=== PATIENT | female | born 1945 | race Caucasian/White ===

== ENCOUNTER 2020-12-04 21:58 | Emergency (ER) | payer MEDICARE, OTHER ==
[2020-12-04] MEDS ORDERED: Zofran 4 MG/2 ML VIAL IV ONE (22:19)
[2020-12-04] MEDS ORDERED: MORPHINE SULFATE 2 MG INJ IV ONE (22:19)
[2020-12-04] MEDS ORDERED: Sodium Chloride 0.9% 500 ML 500 ML IV ONE (22:20)
[2020-12-04] MEDS ORDERED: Zofran 4 MG/2 ML VIAL ONE (22:40)
[2020-12-04] MEDS ORDERED: MORPHINE SULFATE 2 MG INJ ONE (22:40)
[2020-12-04 22:51] LABS: Absolute Neutrophil Ct (ANC) 4.86 (1.4-6.9); BASOPHIL % 0.2 % (0.0-0.4); Basophil (Absolute #) 0.01 (0-0.4); Eosinophil % 3.3 % (0.00-5.0); Eosinophil (Absolute #) 0.19 (0-0.5); Hematocrit 39.6 % (35-47); Hemoglobin 12.9 gm/dl (12.0-16.0); Lymphocyte (Absolute #) 0.29 (1.0-4.6); Lymphocytes % 5.1 % (24.0-44.0); Mean Cell Volume 91.9 fl (78-100); Mean Corpuscular Hemoglobin 29.9 pg (26-32); Mean Corpuscular Hgb Concent. 32.6 g/dl (32-36); Mean Platelet Volume 10.4 fl (7.5-11.0); Monocyte (Absolute #) 0.38 (0.0-1.3); Monocytes % 6.6 % (0.0-12.0); Neutrophil % 84.8 % (36.0-66.0); Platelet Count 207 K/mm3 (150-450); Red Blood Count 4.31 M/mm3 (4.1-5.4); Red Cell Distribution Width 13.1 % (11.5-14.0); White Blood Count 5.7 K/mm3 (4.0-10.5)
--- NOTE | 2020-12-04 22:54 | ERPHSYRPT ---
- History of Present Illness Time Seen by Provider: 12/04/20 22:25 Historian: patient, family Exam Limitations: no limitations Patient Subjective Stated Complaint: pt states "I have had belly pain for a week." Triage Nursing Assessment: pt ambulated into the er; pt is axo x1; c/o abd pain for the past week; pt states 8/10 pain to RLQ; pt denies diarrhea; sister states that pt is vomiting up mucus thick stuff; pt has abd tenderness to RLQ; urine is russel in color; sister states that pt is on antibiotic for UTI; sister states that pt has not been eating or drinking very well lately; vitals wnl Physician History: 75 years old female presented in the ER with chief complaint of lower abdominal pain for almost 1 week with associated nausea/dry heaving and decreased oral intake/appetite. Patient is feeling weak fatigued and tired. Patient sister reports having similar symptoms in the past with UTI and was given antibiotics few days ago and has taken 3 doses so far. She denies any urinary symptoms currently. No fever or chills reported. Patient reports minimal lower abdominal pain currently without any significant aggravating or relieving factors. Timing/Duration: week(s) (1), gradual onset, worse Activities at Onset: rest Quality: dullness Abdominal Pain Onset Location: RLQ, LLQ, periumbilical Pain Radiation: no radiation Severity of Pain-Max: moderate Severity of Pain-Current: mild Modifying Factors: Improves With: nothing Associated Symptoms: loss of appetite, nausea Previous symptoms: no prior history Allergies/Adverse Reactions: Sulfa (Sulfonamide Antibiotics) [Sulfa(Sulfonamide Antibiotics)] Allergy (Verified 09/17/13 14:15) Home Medications: Nitrofurantoin Macro 100 mg [Macrobid 100MG Capsule] 100 mg PO BID 12/04/20 [History] Trazodone HCl 50 mg [Desyrel 50 mg] 25 mg PO HS 12/04/20 [History] Hx Tetanus, Diphtheria Vaccination/Date Given: No Hx Influenza Vaccination/Date Given: No Hx Pneumococcal Vaccination/Date Given: No Travel Risk - International Travel Have you traveled outside of the country in past 3 weeks: No - Coronavirus Screening Are you exhibiting any of the following symptoms?: No Close contact with a COVID-19 positive Pt in past 14-21 Days: No - Vaccine Status Have you recieved a Covid-19 vaccination: Yes 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 - Vaccination Dates Date of 2cond Vaccination (if applicable): 08/03 - Review of Systems Constitutional: Fatigue, Weakness Eyes: No Symptoms Ears, Nose, & Throat: No Symptoms Respiratory: No Symptoms Cardiac: No Symptoms Abdominal/Gastrointestinal: Abdominal Pain, Nausea Genitourinary Symptoms: No Symptoms Musculoskeletal: No Symptoms Skin: No Symptoms Neurological: No Symptoms Endocrine: No Symptoms Hematologic/Lymphatic: No Symptoms Immunological/Allergic: No Symptoms - Past Medical History Pertinent Past Medical History: Yes Neurological History: No Pertinent History ENT History: No Pertinent History Cardiac History: No Pertinent History Respiratory History: No Pertinent History Endocrine Medical History: No Pertinent History Musculoskeletal History: No Pertinent History GI Medical History: Hernia History: No Pertinent History Psycho-Social History: No Pertinent History Female Reproductive Disorders: Breast Cancer Other Medical History: BREAST CANCER OVER 10 YEARS AGO - Past Surgical History Past Surgical History: Yes Neuro Surgical History: No Pertinent History Cardiac: No Pertinent History Respiratory: No Pertinent History Gastrointestinal: Cholecystectomy, Hernia Repair Genitourinary: No Pertinent History Musculoskeletal: Orthopedic Surgery Female Surgical History: Lumpectomy, Mastectomy Other Surgical History: KNEE SURGERY - Social History Smoking Status: Never smoker Exposure to second hand smoke: No Drug Use: none Patient Lives Alone: No - Female History Hx Now: No - Nursing Vital Signs Nursing Vital Signs: Initial Vital Signs Temperature 98.1 F 12/04/20 22:23 Pulse Rate 61 12/04/20 22:23 Respiratory Rate 16 12/04/20 22:23 Blood Pressure 138/91 12/04/20 22:23 O2 Sat by Pulse Oximetry 95 12/04/20 22:23 Pain Scale Pain Intensity 4 - Physical Exam General Appearance: no apparent distress, alert Eye Exam: PERRL/EOMI, eyes nml inspection Ears, Nose, Throat Exam: normal ENT inspection, pharynx normal Neck Exam: normal inspection, supple, full range of motion Respiratory Exam: normal breath sounds, lungs clear Cardiovascular Exam: regular rate/rhythm, normal heart sounds Gastrointestinal/Abdomen Exam: soft, normal bowel sounds, tenderness (Minimal tenderness lower abdomen bilaterally with no guarding or rebound tenderness.) Back Exam: normal inspection, normal range of motion Extremity Exam: normal inspection, normal range of motion Neurologic Exam: alert, oriented x 3, cooperative Skin Exam: normal color SpO2 Interpretation: normal SpO2: 95 O2 Delivery: Room Air Ordered Tests: Active Orders 24 hr Category Date Time Status IV Insertion STAT Care 12/04/20 22:19 Active NPO (ED) STAT Care 12/04/20 22:19 Active ABDOMEN AND PELVIS W/0 CONTRAS [CT] Stat Exams 12/04/20 22:20 Taken CBC W DIFF Stat Lab 12/04/20 22:22 Completed CMP Stat Lab 12/04/20 22:22 Completed CULTURE,URINE Stat Lab 12/04/20 22:22 Received LIPASE Stat Lab 12/04/20 22:22 Completed UA W/RFX UR CULTURE Stat Lab 12/04/20 22:22 Completed Medication Summary Discontinued Medications Generic Name Dose Route Start Last Admin Trade Name Parishq PRN Reason Stop Dose Admin Sodium Chloride 500 mls @ 500 mls/hr 12/04/20 22:20 12/04/20 23:52 Sodium Chloride 0.9% 500 Ml IV 12/04/20 23:19 Infused .Q1H ONE Infusion Ceftriaxone Sodium/Dextrose 2 g in 50 mls @ 100 mls/hr 12/05/20 00:59 12/05/20 01:03 Rocephin 2 Gm-D5w 50ml Bag IV 12/05/20 01:28 100 mls/hr STAT STA 100 mls/hr Administration Ceftriaxone Sodium/Dextrose Confirm 12/05/20 01:01 Rocephin 2 Gm-D5w 50ml Bag Administered 12/05/20 01:02 Dose 2 g in 50 mls @ ud IV .STK-MED ONE Morphine Sulfate 2 mg 12/04/20 22:19 12/04/20 22:41 Morphine Sulfate 2 Mg Inj IV 12/04/20 22:20 2 mg STAT ONE Administration Morphine Sulfate Confirm 12/04/20 22:40 Morphine Sulfate 2 Mg Inj Administered 12/04/20 22:41 Dose 2 mg .ROUTE .STK-MED ONE Ondansetron HCl 4 mg 12/04/20 22:19 12/04/20 22:41 Zofran 4 Mg/2 Ml Vial IV 12/04/20 22:20 4 mg STAT ONE Administration Ondansetron HCl Confirm 12/04/20 22:40 Zofran 4 Mg/2 Ml Vial Administered 12/04/20 22:41 Dose 4 mg .ROUTE .STK-MED ONE Lab/Rad Data: Laboratory Result Diagrams 12/04/20 22:22 12/04/20 22:22 Laboratory Results 12/04/20 12/04/20 12/04/20 Range/Units 22:22 22:22 22:22 WBC 5.7 (4.0-10.5) K/mm3 RBC 4.31 (4.1-5.4) M/mm3 Hgb 12.9 (12.0-16.0) gm/dl Hct 39.6 (35-47) % MCV 91.9 (78-100) fl MCH 29.9 (26-32) pg MCHC 32.6 (32-36) g/dl RDW 13.1 (11.5-14.0) % Plt Count 207 (150-450) K/mm3 MPV 10.4 (7.5-11.0) fl Gran % 84.8 H (36.0-66.0) % Eos # (Auto) 0.19 (0-0.5) Absolute Lymphs (auto) 0.29 L (1.0-4.6) Absolute Monos (auto) 0.38 (0.0-1.3) Lymphocytes % 5.1 L (24.0-44.0) % Monocytes % 6.6 (0.0-12.0) % Eosinophils % 3.3 (0.00-5.0) % Basophils % 0.2 (0.0-0.4) % Absolute Granulocytes 4.86 (1.4-6.9) Basophils # 0.01 (0-0.4) Sodium 135 L (137-145) mmol/L Potassium 3.6 (3.5-5.1) mmol/L Chloride 95 L (98-107) mmol/L Carbon Dioxide 29 (22-30) mmol/L Anion Gap 14.9 (5-15) MEQ/L BUN 18 H (7-17) mg/dL Creatinine 1.21 H (0.52-1.04) mg/dL Estimated GFR 46.2 ML/MIN Glucose 137 H (74-106) mg/dL Calcium 9.7 (8.4-10.2) mg/dL Total Bilirubin 1.30 (0.2-1.3) mg/dL AST 22 (14-36) U/L ALT 10 (0-35) U/L Alkaline Phosphatase 126 (38-126) U/L Serum Total Protein 7.2 (6.3-8.2) g/dL Albumin 4.0 (3.5-5.0) g/dL Lipase 29 (23-300) U/L Urine Color RUSSEL (YELLOW) Urine Appearance SLIGHTLY CLOUDY (CLEAR) Urine pH 5.0 (5-6) Ur Specific Fletcher 1.018 (1.005-1.025) Urine Protein 30 (Negative) Urine Ketones TRACE (NEGATIVE) Urine Blood NEGATIVE (0-5) Jourdan/ul Urine Nitrite NEGATIVE (NEGATIVE) Urine Bilirubin NEGATIVE (NEGATIVE) Urine Urobilinogen 4 (0-1) mg/dL Ur Leukocyte Esterase MODERATE (NEGATIVE) Urine WBC (Auto) 51-100 (0-5) /HPF Urine RBC (Auto) 3-5 (0-2) /HPF U Epithel Cells (Auto) NONE (FEW) /HPF Urine Bacteria (Auto) RARE (NEGATIVE) /HPF Urine Mucus (Auto) SLIGHT (NEGATIVE) /HPF Urine Culture Reflexed YES (NO) Urine Glucose NEGATIVE (NEGATIVE) mg/dL Slides for Path Review YES - Progress Progress: improved Progress Note: 12/05/20 01:33 She is given a fluid bolus along with symptomatic treatment, on reevaluation she is pain-free. Work-up showed normal white count, chemistry profile consistent with mild dehydration. She does have UTI and given a dose of Rocephin in here I. I have obtained CT abdomen pelvis without contrast which showed finding consistent with mild colitis and fluid throughout colon with patient/sister confirms that she has history of chronic diarrhea all the time for quite some time. She does not have any difficulty breathing. With her having UTI and questionable colitis I would continue with Augmentin to go home. Discussed outpatient follow-up with primary care for reevaluation. Discussed signs symptoms of worsening needing return to ER which she seems understanding. Stable for discharge. Counseled pt/family regarding: lab results, diagnosis, need for follow-up, rad results - Departure Departure Disposition: Home Clinical Impression: Acute UTI, Colitis Condition: Stable Critical Care Time: No Referrals: DIVYA CRUZ [Primary Care Provider] - (1-2 days for reevaluation) Instructions: Urinary Tract Infection, Adult (DC), Acute Abdomen (Belly Pain), Adult (DC) Additional Instructions: Take Tylenol as needed for pain. Keep yourself well-hydrated. Follow-up with your primary care physician for reevaluation. Return to ER for worsening abdominal pain, fever chills, if develop confusion/altered level of sensorium. Prescriptions: Amoxicillin/Potassium Clav [Augmentin 875-125 Tablet] 875 mg PO BID 7 Days #14 tablet
[2020-12-04 22:55] LABS: Appearance SLIGHTLY CLOUDY (CLEAR); Bacteria RARE /HPF (NEGATIVE); Bilirubin NEGATIVE (NEGATIVE); Blood NEGATIVE Ery/ul (0-5); Glucose NEGATIVE (NEGATIVE); Ketones TRACE (NEGATIVE); Leukocyte Esterase MODERATE (NEGATIVE); Mucus SLIGHT /HPF (NEGATIVE); Nitrite NEGATIVE (NEGATIVE); Protein,Urine Dip 30 (Negative); Specific Gravity 1.018 (1.005-1.025); Urobilinogen 4 mg/dL (0-1); WBC 51-100 /HPF (0-5)
[2020-12-04 23:03] LABS: ANION GAP 14.9 MEQ/L (5-15); BILIRUBIN,TOTAL 1.3 mg/dL (0.2-1.3); Calcium 9.7 mg/dL (8.4-10.2); Creatinine 1 1.21 mg/dL (0.52-1.04); EST GLOMERULAR FILTRATION RATE 46.2 ML/MIN; Potassium 3.6 mmol/L (3.5-5.1); Total Protein 7.2 g/dL (6.3-8.2)
[2020-12-04 23:56] LABS: Slide Review 1 YES
[2020-12-05] MEDS ORDERED: ROCEPHIN 2 Gm-D5w 50ML BAG** 2 G/50 ML IVPB IV STA (00:59)
[2020-12-05] MEDS ORDERED: ROCEPHIN 2 Gm-D5w 50ML BAG** 2 G/50 ML IVPB IV ONE (01:01)
[2020-12-05 01:10] VITALS: BP 120/74; PULSE 50
[2020-12-05 01:12] VITALS: O2SAT 95
--- NOTE | 2020-12-05 09:15 | XRAY ---
Indication: Lower abdomen pain. UTI. Multiple contiguous images obtained through the abdomen and pelvis without contrast. Comparison: December 26, 2011. Lung bases demonstrates new right lower lobe consolidating airspace disease with small effusion. Stable large hiatal hernia with left lower lobe partial intrathoracic stomach and subsegmental atelectasis. Heart not enlarged. Again partially visualized left breast implant. Noncontrasted stomach and bowel loops appear nonobstructed. Normal appendix. There is now mild fluid distended colon throughout with fluid leveling favoring diarrhea. Again minimal descending/sigmoid diverticulosis without diverticulitis and 13.6 cm splenomegaly. Uterus demonstrates new tiny calcified fibroids, largest 8mm. Interval cholecystectomy. Remaining liver, pancreas, spleen, adrenal glands, kidneys, ureters, bladder, and uterus unremarkable for noncontrast exam. Minimal aortoiliac calcifications without AAA. Osseous structures intact with mild osteopenia, mild/moderate multilevel degenerative spondylosis, and minimal 1-2 mm L4 spondylolisthesis. Impression: 1. New fluid distended colon with fluid leveling favoring diarrhea. 2. New right lower lobe consolidating airspace disease with small effusion. 3. New tiny uterine calcified fibroids. 4. Again incidental large hiatal hernia with partial intrathoracic stomach, colonic diverticulosis, splenomegaly, and chronic bony findings. Comment: Preliminary interpretation was made by [facility]. No critical discrepancy.
== END 2020-12-05 01:48 | disposition home or self-care (01) ==
LOC: ED 21:58
DX: N39.0 Urinary tract infection, site not specified (principal); K52.9 Noninfective gastroenteritis and colitis, unspecified
CPT/HCPCS: 36000; 36415; 74176; 80053; 81001; 83690; 85025; 87086; 96360; 96374; 99284; J0696; J2270; J2405

== ENCOUNTER 2020-12-07 12:46 | Observation (INO) | payer MEDICARE, OTHER ==
[2020-12-07] MEDS ORDERED: Zofran 4 MG/2 ML VIAL IV ONE (13:36)
[2020-12-07] MEDS ORDERED: MORPHINE SULFATE 2 MG INJ IV ONE (13:36)
[2020-12-07] MEDS ORDERED: Sodium Chloride 0.9% 500 ML 500 ML IV ONE ×2 (13:37→13:42)
[2020-12-07] MEDS ORDERED: Zofran 4 MG/2 ML VIAL ONE (13:42)
[2020-12-07] MEDS ORDERED: MORPHINE SULFATE 2 MG INJ ONE (13:42)
--- NOTE | 2020-12-07 13:44 | ERPHSYRPT ---
- History of Present Illness Time Seen by Provider: 12/07/20 12:53 Historian: patient, family Exam Limitations: no limitations Patient Subjective Stated Complaint: pt here for vomiting and abd pain for a couple days, pt was here for a few days ago and was dx with UTI and placed on antibotics, Triage Nursing Assessment: pt arrived per wc, resp easy, skin w/d/p, has face mask in place, abd soft byt tender Physician History: 75 years old female with history of chronic diarrhea, abdominal pain, multiple UTIs who was recently evaluated in the ER with mild colitis, placed on antibiotics presented in the ER again with increasing pain in the lower abdomen especially in the right lower quadrant with associated increasing diarrhea and nausea. Patient has markedly reduced oral intake for the last 10 days and feels weak fatigued tired and dehydrated. No fever or chills reported. She is also having minimal productive cough without any significant shortness of breath. Timing/Duration: day(s) (10), gradual onset, worse Activities at Onset: rest Quality: cramping Abdominal Pain Onset Location: RLQ, LLQ, suprapubic Pain Radiation: no radiation Severity of Pain-Max: moderate Severity of Pain-Current: moderate Modifying Factors: Improves With: nothing Associated Symptoms: diarrhea, loss of appetite, nausea Previous symptoms: same symptoms as today Allergies/Adverse Reactions: Iodinated Contrast Media Allergy (Verified 12/07/20 13:06) Sulfa (Sulfonamide Antibiotics) [Sulfa(Sulfonamide Antibiotics)] Allergy (Verified 12/07/20 13:05) Home Medications: Trazodone HCl 50 mg [Desyrel 50 mg] 25 mg PO HS 12/04/20 [History] Hx Tetanus, Diphtheria Vaccination/Date Given: No Hx Influenza Vaccination/Date Given: No Hx Pneumococcal Vaccination/Date Given: No Immunizations Up to Date: Yes Travel Risk - International Travel Have you traveled outside of the country in past 3 weeks: No - Coronavirus Screening Are you exhibiting any of the following symptoms?: No Close contact with a COVID-19 positive Pt in past 14-21 Days: No - Vaccine Status Have you recieved a Covid-19 vaccination: Yes 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 - Vaccination Dates Date of 2cond Vaccination (if applicable): 08/03 - Review of Systems Constitutional: Fatigue, Weakness Eyes: No Symptoms Ears, Nose, & Throat: No Symptoms Respiratory: No Symptoms Cardiac: No Symptoms Abdominal/Gastrointestinal: Abdominal Pain, Nausea, Diarrhea Genitourinary Symptoms: Dysuria Musculoskeletal: No Symptoms Skin: No Symptoms Neurological: No Symptoms Psychological: No Symptoms Endocrine: No Symptoms Hematologic/Lymphatic: No Symptoms Immunological/Allergic: No Symptoms - Past Medical History Pertinent Past Medical History: Yes Neurological History: No Pertinent History ENT History: No Pertinent History Cardiac History: No Pertinent History Respiratory History: No Pertinent History Endocrine Medical History: No Pertinent History Musculoskeletal History: No Pertinent History GI Medical History: Hernia History: No Pertinent History Psycho-Social History: No Pertinent History Female Reproductive Disorders: Breast Cancer Other Medical History: BREAST CANCER OVER 10 YEARS AGO - Past Surgical History Past Surgical History: Yes Neuro Surgical History: No Pertinent History Cardiac: No Pertinent History Respiratory: No Pertinent History Gastrointestinal: Cholecystectomy, Hernia Repair Genitourinary: No Pertinent History Musculoskeletal: Orthopedic Surgery Female Surgical History: Lumpectomy, Mastectomy Other Surgical History: KNEE SURGERY - Social History Smoking Status: Never smoker Exposure to second hand smoke: No Drug Use: none Patient Lives Alone: No - Female History Hx Last Menstrual Period: post Hx Now: No - Nursing Vital Signs Nursing Vital Signs: Initial Vital Signs Temperature 97.6 F 12/07/20 12:59 Pulse Rate 84 12/07/20 12:59 Respiratory Rate 16 12/07/20 12:59 Blood Pressure 131/91 12/07/20 12:59 O2 Sat by Pulse Oximetry 98 12/07/20 12:59 Pain Scale Pain Intensity 0 - Physical Exam General Appearance: no apparent distress, alert Eye Exam: eyes nml inspection Ears, Nose, Throat Exam: normal ENT inspection, pharynx normal Neck Exam: normal inspection, supple, full range of motion Respiratory Exam: crackles/rales, No respiratory distress Cardiovascular Exam: regular rate/rhythm, normal heart sounds Gastrointestinal/Abdomen Exam: soft, normal bowel sounds, tenderness (Right lower quadrant/suprapubic area), guarding Back Exam: normal inspection, No CVA tenderness Extremity Exam: normal inspection, normal range of motion Neurologic Exam: alert, oriented x 3, cooperative Skin Exam: normal color SpO2 Interpretation: normal SpO2: 98 O2 Delivery: Room Air Ordered Tests: Active Orders 24 hr Category Date Time Status IV Insertion STAT Care 12/07/20 13:36 Active NPO (ED) STAT Care 12/07/20 13:36 Active ABDOMEN AND PELVIS W/0 CONTRAS [CT] Stat Exams 12/07/20 13:37 Taken CBC W DIFF Stat Lab 12/07/20 13:52 Completed CMP Stat Lab 12/07/20 13:52 Completed CULTURE,URINE Stat Lab 12/07/20 15:44 Received LIPASE Stat Lab 12/07/20 13:52 Completed Lactic Acid Stat Lab 12/07/20 15:17 Completed UA W/RFX UR CULTURE Stat Lab 12/07/20 15:44 Completed Transfer Order Routine Transfer 12/07/20 Ordered Medication Summary Discontinued Medications Generic Name Dose Route Start Last Admin Trade Name Freq PRN Reason Stop Dose Admin Sodium Chloride 500 mls @ 500 mls/hr 12/07/20 13:37 12/07/20 15:05 Sodium Chloride 0.9% 500 Ml IV 12/07/20 14:36 Infused .Q1H ONE Infusion Sodium Chloride Confirm 12/07/20 13:42 Sodium Chloride 0.9% 500 Ml Administered 12/07/20 13:43 Dose 500 mls @ ud IV .STK-MED ONE Azithromycin 500 mg in 250 mls @ 250 mls/hr 12/07/20 16:30 12/07/20 18:59 Zithromax 500 Mg/ 250 Ml Nacl Premix IV 12/07/20 17:29 Infused STAT STA Infusion Ceftriaxone Sodium/Dextrose 2 g in 50 mls @ 100 mls/hr 12/07/20 16:30 12/07/20 18:12 Rocephin 2 Gm-D5w 50ml Bag IV 12/07/20 16:59 Infused STAT STA Infusion Ceftriaxone Sodium/Dextrose Confirm 12/07/20 17:08 Rocephin 2 Gm-D5w 50ml Bag Administered 12/07/20 17:09 Dose 2 g in 50 mls @ ud IV .STK-MED ONE Azithromycin Confirm 12/07/20 17:46 Zithromax 500 Mg/ 250 Ml Nacl Premix Administered 12/07/20 17:47 Dose 500 mg in 250 mls @ ud IV .STK-MED ONE Lorazepam 1 mg 12/07/20 16:57 12/07/20 17:07 Ativan 1 Mg PO 12/07/20 16:58 1 mg STAT ONE Administration Lorazepam Confirm 12/07/20 16:58 Ativan 1 Mg Administered 12/07/20 16:59 Dose 1 mg .ROUTE .STK-MED ONE Morphine Sulfate 2 mg 12/07/20 13:36 12/07/20 13:45 Morphine Sulfate 2 Mg Inj IV 12/07/20 13:37 2 mg STAT ONE Administration Morphine Sulfate Confirm 12/07/20 13:42 Morphine Sulfate 2 Mg Inj Administered 12/07/20 13:43 Dose 2 mg .ROUTE .STK-MED ONE Ondansetron HCl 4 mg 12/07/20 13:36 12/07/20 13:45 Zofran 4 Mg/2 Ml Vial IV 12/07/20 13:37 4 mg STAT ONE Administration Ondansetron HCl Confirm 12/07/20 13:42 Zofran 4 Mg/2 Ml Vial Administered 12/07/20 13:43 Dose 4 mg .ROUTE .STK-MED ONE Lab/Rad Data: Laboratory Result Diagrams 12/07/20 13:52 12/07/20 13:52 Laboratory Results 12/07/20 12/07/20 12/07/20 Range/Units 17:09 15:44 15:17 WBC (4.0-10.5) K/mm3 RBC (4.1-5.4) M/mm3 Hgb (12.0-16.0) gm/dl Hct (35-47) % MCV (78-100) fl MCH (26-32) pg MCHC (32-36) g/dl RDW (11.5-14.0) % Plt Count (150-450) K/mm3 MPV (7.5-11.0) fl Gran % (36.0-66.0) % Eos # (Auto) (0-0.5) Absolute Lymphs (auto) (1.0-4.6) Absolute Monos (auto) (0.0-1.3) Lymphocytes % (24.0-44.0) % Monocytes % (0.0-12.0) % Eosinophils % (0.00-5.0) % Basophils % (0.0-0.4) % Absolute Granulocytes (1.4-6.9) Basophils # (0-0.4) Sodium (137-145) mmol/L Potassium (3.5-5.1) mmol/L Chloride (98-107) mmol/L Carbon Dioxide (22-30) mmol/L Anion Gap (5-15) MEQ/L BUN (7-17) mg/dL Creatinine (0.52-1.04) mg/dL Estimated GFR ML/MIN Glucose (74-106) mg/dL Lactic Acid 1.2 (0.4-2.0) Calcium (8.4-10.2) mg/dL Total Bilirubin (0.2-1.3) mg/dL AST (14-36) U/L ALT (0-35) U/L Alkaline Phosphatase (38-126) U/L Serum Total Protein (6.3-8.2) g/dL Albumin (3.5-5.0) g/dL Lipase (23-300) U/L Urine Color DARLIN (YELLOW) Urine Appearance SLIGHTLY CLOUDY (CLEAR) Urine pH 6.0 (5-6) Ur Specific [place] 1.023 (1.005-1.025) Urine Protein 30 (Negative) Urine Ketones SMALL (NEGATIVE) Urine Blood NEGATIVE (0-5) Jourdan/ul Urine Nitrite POSITIVE (NEGATIVE) Urine Bilirubin NEGATIVE (NEGATIVE) Urine Urobilinogen 4 (0-1) mg/dL Ur Leukocyte Esterase NEGATIVE (NEGATIVE) Urine WBC (Auto) 3-5 (0-5) /HPF Urine RBC (Auto) 0-2 (0-2) /HPF U Epithel Cells (Auto) NONE (FEW) /HPF Urine Bacteria (Auto) FEW (NEGATIVE) /HPF Urine Mucus (Auto) SLIGHT (NEGATIVE) /HPF Urine Culture Reflexed YES (NO) Urine Glucose 50 (NEGATIVE) mg/dL SARS-CoV-2 (PCR) NEGATIVE (NEGATIVE) Slides for Path Review 12/07/20 12/07/20 Range/Units 13:52 13:52 WBC 3.8 L (4.0-10.5) K/mm3 RBC 4.11 (4.1-5.4) M/mm3 Hgb 12.0 (12.0-16.0) gm/dl Hct 37.8 (35-47) % MCV 92.0 (78-100) fl MCH 29.2 (26-32) pg MCHC 31.7 L (32-36) g/dl RDW 12.9 (11.5-14.0) % Plt Count 203 (150-450) K/mm3 MPV 9.8 (7.5-11.0) fl Gran % 75.7 H (36.0-66.0) % Eos # (Auto) 0.16 (0-0.5) Absolute Lymphs (auto) 0.39 L (1.0-4.6) Absolute Monos (auto) 0.36 (0.0-1.3) Lymphocytes % 10.4 L (24.0-44.0) % Monocytes % 9.6 (0.0-12.0) % Eosinophils % 4.3 (0.00-5.0) % Basophils % 0.0 (0.0-0.4) % Absolute Granulocytes 2.85 (1.4-6.9) Basophils # 0 (0-0.4) Sodium 135 L (137-145) mmol/L Potassium 4.0 (3.5-5.1) mmol/L Chloride 98 (98-107) mmol/L Carbon Dioxide 28 (22-30) mmol/L Anion Gap 12.6 (5-15) MEQ/L BUN 16 (7-17) mg/dL Creatinine 0.91 (0.52-1.04) mg/dL Estimated GFR > 60.0 ML/MIN Glucose 106 (74-106) mg/dL Lactic Acid (0.4-2.0) Calcium 9.2 (8.4-10.2) mg/dL Total Bilirubin 0.50 (0.2-1.3) mg/dL AST 16 (14-36) U/L ALT 6 (0-35) U/L Alkaline Phosphatase 85 (38-126) U/L Serum Total Protein 6.2 L (6.3-8.2) g/dL Albumin 3.3 L (3.5-5.0) g/dL Lipase 63 (23-300) U/L Urine Color (YELLOW) Urine Appearance (CLEAR) Urine pH (5-6) Ur Specific [place] (1.005-1.025) Urine Protein (Negative) Urine Ketones (NEGATIVE) Urine Blood (0-5) Jourdan/ul Urine Nitrite (NEGATIVE) Urine Bilirubin (NEGATIVE) Urine Urobilinogen (0-1) mg/dL Ur Leukocyte Esterase (NEGATIVE) Urine WBC (Auto) (0-5) /HPF Urine RBC (Auto) (0-2) /HPF U Epithel Cells (Auto) (FEW) /HPF Urine Bacteria (Auto) (NEGATIVE) /HPF Urine Mucus (Auto) (NEGATIVE) /HPF Urine Culture Reflexed (NO) Urine Glucose (NEGATIVE) mg/dL SARS-CoV-2 (PCR) (NEGATIVE) Slides for Path Review YES - Progress Progress: improved Progress Note: 12/07/20 16:43 75 years old female is evaluated for abdominal pain, generalized weakness fatigue, decreased oral intake. She was recently evaluated, diagnosed with colitis and UTI currently on antibiotics. I have given her fluids, pain medication, on reevaluation feeling better. She has white count of 3.8, grossly unremarkable chemistries but does have still UTI with nitrites positive. I have a repeated CT which did not show any acute intra-abdominal findings but does have bilateral lower lobe pneumonia with the right greater than the left and I have started her on Zithromax and Rocephin which will also cover for UTI. Discussed with Dr. Turner and patient is being admitted. Will see patient in: hospital (observation) Counseled pt/family regarding: lab results, diagnosis, rad results - Departure Departure Disposition: Observation Clinical Impression: Acute UTI, Generalized weakness, Generalized abdominal pain Bilateral pneumonia Qualifiers: Pneumonia type: due to unspecified organism Lung location: lower lobe of lung Qualified Code(s): J18.9 - Pneumonia, unspecified organism Condition: Stable Critical Care Time: No Referrals: DIVYA CRUZ [Primary Care Provider] -
[2020-12-07 13:56] LABS: Absolute Neutrophil Ct (ANC) 2.85 (1.4-6.9); Basophil (Absolute #) 0 (0-0.4); Eosinophil % 4.3 % (0.00-5.0); Eosinophil (Absolute #) 0.16 (0-0.5); Hematocrit 37.8 % (35-47); Lymphocyte (Absolute #) 0.39 (1.0-4.6); Lymphocytes % 10.4 % (24.0-44.0); Mean Corpuscular Hemoglobin 29.2 pg (26-32); Mean Corpuscular Hgb Concent. 31.7 g/dl (32-36); Mean Platelet Volume 9.8 fl (7.5-11.0); Monocyte (Absolute #) 0.36 (0.0-1.3); Monocytes % 9.6 % (0.0-12.0); Neutrophil % 75.7 % (36.0-66.0); Platelet Count 203 K/mm3 (150-450); Red Blood Count 4.11 M/mm3 (4.1-5.4); Red Cell Distribution Width 12.9 % (11.5-14.0); White Blood Count 3.8 K/mm3 (4.0-10.5)
[2020-12-07 14:16] LABS: ALBUMIN 3.3 g/dL (3.5-5.0); ALKALINE PHOSPHATASE 85 U/L (38-126); ANION GAP 12.6 MEQ/L (5-15); BLOOD UREA NITROGEN 16 mg/dL (7-17); CHLORIDE 98 mmol/L (98-107); Calcium 9.2 mg/dL (8.4-10.2); Carbon Dioxide 28 mmol/L (22-30); Creatinine 1 0.91 mg/dL (0.52-1.04); EST GLOMERULAR FILTRATION RATE > 60.0 ML/MIN; Glucose 106 mg/dL (74-106); LIPASE 63 U/L (23-300); SGOT/AST 16 U/L (14-36); SGPT/ALT 6 U/L (0-35); SODIUM 135 mmol/L (137-145); Total Protein 6.2 g/dL (6.3-8.2)
[2020-12-07 14:51] LABS: Slide Review 1 YES
[2020-12-07 16:21] LABS: Appearance SLIGHTLY CLOUDY (CLEAR); Bacteria FEW /HPF (NEGATIVE); Bilirubin NEGATIVE (NEGATIVE); Blood NEGATIVE Ery/ul (0-5); Glucose 50 mg/dL (NEGATIVE); Ketones SMALL (NEGATIVE); Leukocyte Esterase NEGATIVE (NEGATIVE); Mucus SLIGHT /HPF (NEGATIVE); Nitrite POSITIVE (NEGATIVE); Protein,Urine Dip 30 (Negative); RBC 0-2 /HPF (0-2); Specific Gravity 1.023 (1.005-1.025); Urobilinogen 4 mg/dL (0-1)
[2020-12-07] MEDS ORDERED: ROCEPHIN 2 Gm-D5w 50ML BAG** 2 G/50 ML IVPB IV STA (16:30)
[2020-12-07] MEDS ORDERED: Zithromax 500 MG/ 250 ML NaCl Premix 500 MG/250 ML IVPB IV STA (16:30)
[2020-12-07] MEDS ORDERED: Ativan 1 MG PO ONE (16:57)
[2020-12-07] MEDS ORDERED: Ativan 1 MG ONE (16:58)
[2020-12-07] MEDS ORDERED: ROCEPHIN 2 Gm-D5w 50ML BAG** 2 G/50 ML IVPB IV ONE (17:08)
[2020-12-07] MEDS ORDERED: Zithromax 500 MG/ 250 ML NaCl Premix 500 MG/250 ML IVPB IV ONE (17:46)
[2020-12-07] MEDS ORDERED: Zofran 4 MG/2 ML VIAL IV PRN (20:49)
[2020-12-07] MEDS ORDERED: TYLENOL 325 MG PO PRN (20:49)
[2020-12-07] MEDS ORDERED: DUONEB 0.5-3 MG/3 ml Neb IH PRN (20:49)
[2020-12-07] MEDS ORDERED: MORPHINE SULFATE 2 MG INJ IV PRN (20:49)
[2020-12-07] MEDS: Sodium Chloride 0.9% 1000 ML 1,000 ML IV SCH (21:20)
[2020-12-07] MEDS: Pepcid 20 MG VIAL IV SCH (21:20)
--- NOTE | 2020-12-07 21:44 | XRAY ---
Indication: Abdomen pain. Colitis. Perforation. Multiple contiguous axial images obtained through the abdomen and pelvis without contrast. Comparison: December 04, 2020. Lung bases again demonstrates right lower lobe consolidating airspace disease with small effusion, large hiatal hernia with left lower lobe partial intrathoracic stomach, and partially visualized left breast implant. Heart not enlarged again with small pericardial effusion/thickening. Noncontrasted stomach and bowel loops remain nonobstructed again with normal appendix and colonic diverticulosis. Stable splenomegaly, tiny calcified uterine fibroids, minimal aortoiliac calcifications, and cholecystectomy clips. Free fluid/air. Remaining liver, pancreas, spleen, adrenal glands, kidneys, ureters, bladder, and uterus unremarkable for noncontrast exam. Osseous structures again demonstrate osteopenia, multilevel degenerative spondylosis, and minimal grade 1 L4 spondylolisthesis. Impression: Stable right lower lobe consolidating airspace disease with small effusion, large hiatal hernia with partial intrathoracic stomach, tiny uterine calcified fibroids, colonic diverticulosis, splenomegaly, and chronic bony findings. No new/acute findings. Comment: Preliminary interpretation may by [facility]. No critical discrepancy.
[2020-12-08 06:30] LABS: ALBUMIN 2.8 g/dL (3.5-5.0); ALKALINE PHOSPHATASE 66 U/L (38-126); ANION GAP 11.5 MEQ/L (5-15); BLOOD UREA NITROGEN 14 mg/dL (7-17); CHLORIDE 102 mmol/L (98-107); Calcium 8.5 mg/dL (8.4-10.2); Carbon Dioxide 28 mmol/L (22-30); EST GLOMERULAR FILTRATION RATE > 60.0 ML/MIN; Glucose 80 mg/dL (74-106); Potassium 3.4 mmol/L (3.5-5.1); SGOT/AST 14 U/L (14-36); SODIUM 138 mmol/L (137-145); Total Protein 5.4 g/dL (6.3-8.2)
[2020-12-08 06:32] LABS: Hematocrit 33.1 % (35-47); Hemoglobin 10.4 gm/dl (12.0-16.0); Mean Corpuscular Hemoglobin 29.5 pg (26-32); Mean Corpuscular Hgb Concent. 31.4 g/dl (32-36); Mean Platelet Volume 9.9 fl (7.5-11.0); Platelet Count 176 K/mm3 (150-450); Red Blood Count 3.52 M/mm3 (4.1-5.4); White Blood Count 3.2 K/mm3 (4.0-10.5)
[2020-12-08 06:37] LABS: SGPT/ALT 4 U/L (0-35)
[2020-12-08 08:09] LABS: Eosinophil 3 % (0.00-3.0); Lymphocytes 20 % (24-44); Neutrophils 77 % (36.0-66.0); Total Cells Counted 100
[2020-12-08 08:16] LABS: Platelet Estimate NORMAL (NORMAL)
[2020-12-08] MEDS ORDERED: Zithromax 500 MG/ 250 ML NaCl Premix 500 MG/250 ML IVPB IV SCH (10:00)
[2020-12-08] MEDS ORDERED: ROCEPHIN 1 Gm-D5w 50 ml Bag** 1 G/50 ML IVPB IV SCH (10:00)
[2020-12-08] MEDS: Pepcid 20 MG VIAL IV SCH ×2 (10:37→21:06)
[2020-12-08] MEDS: Sodium Chloride 0.9% 1000 ML 1,000 ML IV SCH (10:47)
--- NOTE | 2020-12-08 14:54 | HP ---
CHIEF COMPLAINT: Vomiting, diarrhea, weakness. HISTORY OF PRESENT ILLNESS: The patient is a 75 year-old white female who according to her daughter has Alzheimer's dementia. She has been on Augmentin recently for urinary tract infection which has likely led to her problem with the diarrhea. The patient however has lost 50 pounds over the past six months according to her daughter because she will not eat or drink anything. The patient's primary care physician is actually in [place] which she has continued to see over the past couple of years even though she lives locally here with her sister who is not in much better shape than she is, according to the patient's daughter. PAST MEDICAL/SURGICAL HISTORY: Otherwise includes chronic urinary tract infection. She had history of breast cancer previously. She has had knee surgery, lumpectomy, mastectomy, cholecystectomy, hernia repairs. HOME MEDICATIONS: Trazodone 50 mg a day and the Augmentin which she has been taking recently. ALLERGIES: IODINATED CONTRAST MEDIA. SULFA. PHYSICAL EXAMINATION: The patient's vital signs on admission showed her temperature 97.6F, pulse 84, respiratory rate 16 and blood pressure 131/91. She had O2 saturation of 98%. HEENT: Normocephalic, atraumatic. Pupils equal round reactive to light. Extraocular movements intact. Oropharynx is dry. NECK: Supple without lymphadenopathy, thyromegaly or JVD. CHEST: Clear to auscultation. HEART: Regular rate and rhythm without murmurs, rubs or gallops. ABDOMEN: No palpable masses. EXTREMITIES: Without significant cyanosis, clubbing or edema. NEUROLOGIC: The patient is currently arousable to verbal stimuli but sleepy. Her daughter is the source of her history. LAB DATA AND TESTS: The patient's laboratory studies have shown the COVID test to be negative. Initial white count was 3,800, hemoglobin 12.0, PLT count 203,000. She had a metabolic panel showing glucose 106, BUN 16, creatinine 0.91. Sodium slightly low at 135, albumin was low at 6.2. Liver enzymes and lipase were normal. Lactic acid 1.2. Urine specific gravity 1.023 was positive for nitrite but however only 2-5 white blood cells per high power field. We will be obtaining a culture. ASSESSMENT: The patient did also have CT scan of the abdomen and pelvis and according to the emergency room physician we felt that she had lower lobe infiltrates consistent with possible pneumonia. We will follow this up with radiologist and we will also check some procalcitonin levels. She has been placed on Rocephin and Zithromax. We will continue this presently until the radiologist either agrees or disagrees with the emergency room physician's evaluation. The patient will have physical therapy and occupational therapy evaluations as well for ambulation as she is somewhat weak on being to get up and go to the bathroom earlier today. We hope to be able to send the patient back to her home shortly after the acute care situation is resolved.
[2020-12-08] MEDS ORDERED: Ativan 1 MG PO PRN (14:56)
[2020-12-08] MEDS ORDERED: Ativan 2 MG/1 ML VIAL IV ONE (14:56)
[2020-12-08] MEDS ORDERED: DESYREL 50 MG PO SCH (22:00)
[2020-12-09] MEDS: Sodium Chloride 0.9% 1000 ML 1,000 ML IV SCH (02:15)
[2020-12-09 05:44] LABS: Hemoglobin 10.2 gm/dl (12.0-16.0); Mean Cell Volume 93.3 fl (78-100); Mean Corpuscular Hemoglobin 29.7 pg (26-32); Mean Corpuscular Hgb Concent. 31.9 g/dl (32-36); Mean Platelet Volume 9.6 fl (7.5-11.0); Platelet Count 188 K/mm3 (150-450); Red Blood Count 3.43 M/mm3 (4.1-5.4); Red Cell Distribution Width 12.8 % (11.5-14.0); White Blood Count 3.2 K/mm3 (4.0-10.5)
[2020-12-09 05:58] LABS: ALBUMIN 2.6 g/dL (3.5-5.0); ALKALINE PHOSPHATASE 63 U/L (38-126); ANION GAP 9.3 MEQ/L (5-15); BLOOD UREA NITROGEN 10 mg/dL (7-17); CHLORIDE 104 mmol/L (98-107); Calcium 8.3 mg/dL (8.4-10.2); Carbon Dioxide 29 mmol/L (22-30); Creatinine 1 0.76 mg/dL (0.52-1.04); EST GLOMERULAR FILTRATION RATE > 60.0 ML/MIN; Glucose 90 mg/dL (74-106); Potassium 3.4 mmol/L (3.5-5.1); SGOT/AST 15 U/L (14-36); SODIUM 139 mmol/L (137-145); Total Protein 5.1 g/dL (6.3-8.2)
[2020-12-09 06:10] LABS: SGPT/ALT 5 U/L (0-35)
[2020-12-09 06:55] VITALS: BP 141/73; PULSE 76; O2SAT 97
[2020-12-09 07:08] LABS: BAND 3 % (0.0-2.0); Eosinophil 3 % (0.00-3.0); Lymphocytes 14 % (24-44); Monocyte 3 % (0.0-12.0); Neutrophils 77 % (36.0-66.0); Platelet Estimate NORMAL (NORMAL); Total Cells Counted 100
--- NOTE | 2020-12-10 14:48 | DS ---
DISCHARGE DIAGNOSES: 1) DEHYDRATION. 2) DIARRHEA. 3) WEAKNESS. 4) DEMENTIA. HOSPITAL COURSE: The patient is a 75 year-old white female who is getting Augmentin for what was felt to be a urinary tract infection after which the patient did have problems with diarrhea and less and less food intake. With food intake the patient was seen in the emergency room and felt to be dehydrated with possible urinary tract infection. Urine showed positive nitrite and only 3-5 white blood cells per high power field. A culture was obtained and at this point it seems to be no growth. We stopped the patient's Augmentin. She was having just one stool a day and therefore it was not felt likely to have clostridium difficile colitis. The patient improved with just IV fluids to the point she was becoming restless and climbing out of bed due to her dementia. Her daughter did stay with her overnight of 12/09/2020 to 12/10/2020. We agreed with a discussion with her sister, her daughter and our nursing staff the patient would be better treated at home in familiar surroundings with her pet and her sister is continuing to stay with her of course. The patient was felt to be ready for discharge home after IV fluid hydration. At this time we will leave her without antibiotics presently. There did appear to be a possible infiltrate versus atelectasis in the lower lobe segments noted on the CT scan that she had on initial evaluation. She did have a large hiatal hernia also noted that caused the stomach to be up in the thoracic region. The patient is currently back to her usual state of health at this time and was noted to be ready for discharge back home again with instructions to follow with primary care provider in the next week or sooner if she had new problems or worsening of her condition in general. Her most recent labs showed her white count to be 3,200 with hemoglobin 10.2 and PLT count of 188,000. She had normal sugar at 90, BUN 10, creatinine 0.76. Potassium slightly low at 3.4. Again at this point the patient is felt to be ready for discharge home to follow up with her primary care provider.
== END 2020-12-09 08:50 | disposition home or self-care (01) ==
LOC: ED 12:46 → MED SURG 20:42
PROVIDERS: ADMIT Family Medicine; ATTEND Family Medicine
DX: E86.0 Dehydration (principal); R53.1 Weakness; R19.7 Diarrhea, unspecified; R10.32 Left lower quadrant pain; R10.31 Right lower quadrant pain; F03.90 Unspecified dementia, unspecified severity, without behavioral disturbance, psychotic disturbance, mood disturbance, and anxiety; Z79.899 Other long term (current) drug therapy; Z20.828 Contact with and (suspected) exposure to other viral communicable diseases
CPT/HCPCS: 36000; 36415; 74176; 80053; 81001; 83605; 83690; 84145; 85025; 87086; 96365; 96367; 96374; 96375; 99285; G0378; U0003; J0456; J0696; J2060; J2270; J2405; A9270-GY

== ENCOUNTER 2021-08-04 03:28 | Emergency (ER) | payer MEDICARE, OTHER ==
[2021-08-04] MEDS ORDERED: Sodium Chloride 0.9% 1000 ML 1,000 ML ONE (04:14)
[2021-08-04] MEDS ORDERED: Sodium Chloride 0.9% 1000 ML 1,000 ML IV SCH (04:15)
--- NOTE | 2021-08-04 04:20 | ERPHSYRPT ---
- History of Present Illness Source: patient (Patient sadly is pleasant but very demented but her sister is present gives the history.), family Exam Limitations: clinical condition Patient Subjective Stated Complaint: "My arm hurts." Triage Nursing Assessment: 76 y/o F with reported PMH significant for alzheimers, breast cancer and left radical masectomy and right lumpectomy. Pt's sister reported a three day history of arm pain and intermittent left breast pain. The sister reported that the patient said that she felt as if something "exploded" in her chest. Pt's sister reported weakness in the bilateral lower extremities over the last two days. Pt denied headache, dizziness, visual disturbances, shortness of breath, nausea/vomiting, diarrhea/constipation, hematochezia, dysuria, frequency, or hesitation. The sister reported that the patient's mental status is baseline at this time. The sister also reported concerns for the patient appearing as if she has lost significant weight. pupils 3mm bilateral. oral mucosa pink/moist. neck supple without JVD. Symmetr ical chest expansion. Heart tones S1/S2 RRR without extra sounds. Lungs vesicular with adequate airflow and no adventitious sounds. Abdomen non- distended with bowel sounds in all quadrants. No palpable organomegaly/pulsatile masses. No noted dependent edema. Gait unsteady and weak bilateral. No noted focal/global neurological deficits. The left chest shows masectomy scar with breast implant. No erythema, edema, or skin changes to the breast. Timing/Duration: day(s) (3-4) Associated Symptoms: weakness Hx Tetanus, Diphtheria Vaccination/Date Given: No Hx Influenza Vaccination/Date Given: No Hx Pneumococcal Vaccination/Date Given: No <MAYLIN SOSA - Last Filed: 08/04/21 07:08> <GISELA HOANG - Last Filed: 08/04/21 07:28> - History of Present Illness Time Seen by Provider: 08/04/21 04:16 Physician History: Patient says that she has had left arm pain and breast pain on and off for 3 days the sister reports she is fixated on the left breast. She does have an implant in that breast. The left arm and breast has pain. The sister denies any fever chills sweats there is a nonspecific weakness in the legs per the sister. 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 - Vaccination Dates Date of 2cond Vaccination (if applicable): na <MAYLIN SOSA - Last Filed: 08/04/21 07:08> - Review of Systems All Other Systems: Unable due to dementia <MAYLIN SOSA - Last Filed: 08/04/21 07:08> - Past Medical History Pertinent Past Medical History: Yes Neurological History: Alzheimer's Disease, Dementia ENT History: No Pertinent History Cardiac History: No Pertinent History Respiratory History: No Pertinent History Endocrine Medical History: No Pertinent History Musculoskeletal History: No Pertinent History GI Medical History: Hernia History: No Pertinent History Psycho-Social History: No Pertinent History Female Reproductive Disorders: Breast Cancer Other Medical History: BREAST CANCER OVER 10 YEARS AGO; basal cell skin cancer on face - Past Surgical History Past Surgical History: Yes Neuro Surgical History: No Pertinent History Cardiac: No Pertinent History Respiratory: No Pertinent History Gastrointestinal: Cholecystectomy, Hernia Repair Genitourinary: No Pertinent History Musculoskeletal: Orthopedic Surgery Female Surgical History: Lumpectomy, Mastectomy Other Surgical History: KNEE SURGERY - Social History Smoking Status: Never smoker Exposure to second hand smoke: No Drug Use: none Patient Lives Alone: No <MAYLIN SOSA - Last Filed: 08/04/21 07:08> - Physical Exam General Appearance: no apparent distress, alert Eye Exam: PERRL/EOMI, eyes nml inspection Ears, Nose, Throat Exam: normal ENT inspection, TMs normal, pharynx normal, moist mucous membranes Neck Exam: normal inspection, non-tender, supple, full range of motion Respiratory Exam: normal breath sounds, lungs clear, other (Examination of the breast show no masses in the right breast where a lumpectomy has been done. On the left side there is an obvious implant it is without any sign of inflammation or any apparent discomfort 1 with palpation.), No respiratory distress Cardiovascular Exam: regular rate/rhythm, normal heart sounds, normal peripheral pulses Gastrointestinal/Abdomen Exam: soft, normal bowel sounds, No tenderness, No mass Back Exam: normal inspection, normal range of motion, No CVA tenderness, No vertebral tenderness Extremity Exam: normal inspection, normal range of motion, pelvis stable Neurologic Exam: alert, oriented x 3, cooperative, normal mood/affect, nml cerebellar function, nml station & gait, sensation nml, No motor deficits Skin Exam: normal color, warm, dry, No rash Lymphatic Exam: No adenopathy SpO2: 98 <MAYLIN SOSA - Last Filed: 08/04/21 07:08> - Nursing Vital Signs Nursing Vital Signs: Initial Vital Signs Pulse Rate 63 08/04/21 03:28 Respiratory Rate 18 08/04/21 03:28 Blood Pressure 188/92 08/04/21 03:28 O2 Sat by Pulse Oximetry 98 08/04/21 03:28 Pain Scale Pain Intensity 3 - Course Nursing assessment & vital signs reviewed: Yes EKG Interpreted by Me: RATE (62), Sinus Rhythm, NORMAL AXIS, NORMAL QRS, Non- specific ST Changes - Radiology Exams Humerus X-ray Interpretation: Interpreted by me, Negative Forearm X-ray Interpretation: Interpreted by me, Negative <MAYLIN SOSA - Last Filed: 08/04/21 07:08> Ordered Tests: Active Orders 24 hr Category Date Time Status IV Insertion STAT Care 08/04/21 04:09 Active CHEST WITHOUT CONTRAST [CT] Stat Exams 08/04/21 04:22 Taken FOREARM Stat Exams 08/04/21 04:07 Taken HUMERUS Stat Exams 08/04/21 04:06 Taken CBC W DIFF Stat Lab 08/04/21 04:30 Completed CMP Stat Lab 08/04/21 04:30 Completed CULTURE,URINE Stat Lab 08/04/21 04:11 Received TROPONIN Q3H Lab 08/04/21 06:15 Completed TROPONIN Q3H Lab 08/04/21 09:15 Ordered TROPONIN Q3H Lab 08/04/21 12:15 Ordered Medication Summary Generic Name Dose Route Start Last Admin Trade Name Freq PRN Reason Stop Dose Admin Sodium Chloride 1,000 mls @ 100 mls/hr 08/04/21 04:15 08/04/21 04:16 Sodium Chloride 0.9% 1000 Ml IV 09/03/21 04:14 100 mls/hr .Q10H SHIRA Administration Lab/Rad Data: Laboratory Result Diagrams 08/04/21 04:30 08/04/21 04:30 Laboratory Results 08/04/21 08/04/21 08/04/21 Range/Units 06:15 04:30 04:30 WBC 3.6 L (4.0-10.5) K/mm3 RBC 3.62 L (4.1-5.4) M/mm3 Hgb 11.1 L (12.0-16.0) gm/dl Hct 35.5 (35-47) % MCV 98.1 (78-100) fl MCH 30.7 (26-32) pg MCHC 31.3 L (32-36) g/dl RDW 14.5 H (11.5-14.0) % Plt Count 127 L (150-450) K/mm3 MPV 9.7 (7.5-11.0) fl Gran % 61.7 (36.0-66.0) % Eos # (Auto) 0.14 (0-0.5) Absolute Lymphs (auto) 0.84 L (1.0-4.6) Absolute Monos (auto) 0.36 (0.0-1.3) Lymphocytes % 23.5 L (24.0-44.0) % Monocytes % 10.1 (0.0-12.0) % Eosinophils % 3.9 (0.00-5.0) % Basophils % 0.8 (0.0-0.4) % Absolute Granulocytes 2.20 (1.4-6.9) Basophils # 0.03 (0-0.4) Sodium 141 (137-145) mmol/L Potassium 4.5 (3.5-5.1) mmol/L Chloride 107 (98-107) mmol/L Carbon Dioxide 29 (22-30) mmol/L Anion Gap 10.0 (5-15) MEQ/L BUN 18 H (7-17) mg/dL Creatinine 0.89 (0.52-1.04) mg/dL Estimated GFR > 60.0 ML/MIN Glucose 96 (74-106) mg/dL Calcium 8.9 (8.4-10.2) mg/dL Total Bilirubin 0.60 (0.2-1.3) mg/dL AST 18 (14-36) U/L ALT 8 (0-35) U/L Alkaline Phosphatase 80 (38-126) U/L Troponin I < 0.012 (0.000-0.034) ng/mL Serum Total Protein 5.7 L (6.3-8.2) g/dL Albumin 3.3 L (3.5-5.0) g/dL Urinalys Dipstick Clnc Urine Color (YELLOW) Urine Appearance (CLEAR) Urine pH (5-6) Ur Specific [place] (1.005-1.025) POC Urine Protein Conf (Negative) Urine Ketones (NEGATIVE) Urine Nitrite (NEGATIVE) Urine Bilirubin (NEGATIVE) Urine Urobilinogen (0-1) mg/dL Urine Leukocytes (NEGATIVE) Urine WBC (Auto) (0-5) /HPF Urine RBC (Auto) (0-2) /HPF Urine Bacteria (Auto) (NEGATIVE) /HPF Urine RBC (0-5) Jourdan/ul Urine Mucus (Auto) (NEGATIVE) /HPF Urine Glucose (NEGATIVE) mg/dL 08/04/21 Range/Units 04:12 WBC (4.0-10.5) K/mm3 RBC (4.1-5.4) M/mm3 Hgb (12.0-16.0) gm/dl Hct (35-47) % MCV (78-100) fl MCH (26-32) pg MCHC (32-36) g/dl RDW (11.5-14.0) % Plt Count (150-450) K/mm3 MPV (7.5-11.0) fl Gran % (36.0-66.0) % Eos # (Auto) (0-0.5) Absolute Lymphs (auto) (1.0-4.6) Absolute Monos (auto) (0.0-1.3) Lymphocytes % (24.0-44.0) % Monocytes % (0.0-12.0) % Eosinophils % (0.00-5.0) % Basophils % (0.0-0.4) % Absolute Granulocytes (1.4-6.9) Basophils # (0-0.4) Sodium (137-145) mmol/L Potassium (3.5-5.1) mmol/L Chloride (98-107) mmol/L Carbon Dioxide (22-30) mmol/L Anion Gap (5-15) MEQ/L BUN (7-17) mg/dL Creatinine (0.52-1.04) mg/dL Estimated GFR ML/MIN Glucose (74-106) mg/dL Calcium (8.4-10.2) mg/dL Total Bilirubin (0.2-1.3) mg/dL AST (14-36) U/L ALT (0-35) U/L Alkaline Phosphatase (38-126) U/L Troponin I (0.000-0.034) ng/mL Serum Total Protein (6.3-8.2) g/dL Albumin (3.5-5.0) g/dL Urinalys Dipstick Clnc MAIN LAB Urine Color YELLOW (YELLOW) Urine Appearance CLEAR (CLEAR) Urine pH 6.0 (5-6) Ur Specific [place] 1.025 (1.005-1.025) POC Urine Protein Conf NEGATIVE (Negative) Urine Ketones NEGATIVE (NEGATIVE) Urine Nitrite NEGATIVE (NEGATIVE) Urine Bilirubin NEGATIVE (NEGATIVE) Urine Urobilinogen 0.2 (0-1) mg/dL Urine Leukocytes NEGATIVE (NEGATIVE) Urine WBC (Auto) 0-2 (0-5) /HPF Urine RBC (Auto) 0-2 (0-2) /HPF Urine Bacteria (Auto) RARE (NEGATIVE) /HPF Urine RBC NEGATIVE (0-5) Jourdan/ul Urine Mucus (Auto) SLIGHT (NEGATIVE) /HPF Urine Glucose NEGATIVE (NEGATIVE) mg/dL - Progress Progress: unchanged <MAYLIN SOSA - Last Filed: 08/04/21 07:08> - Progress Counseled pt/family regarding: lab results, diagnosis, need for follow-up, rad results <GISELA HOANG - Last Filed: 08/04/21 07:28> - Progress Progress Note: 08/04/21 07:[address] Hoang at shift change. He will make final disposition (MAYLIN SOSA) 08/04/21 07:24 CAT scan of chest without contrast shows moderately large hiatal hernia, mild splenomegaly. No acute findings. (GISELA HOANG) - Departure Departure Disposition: Home Critical Care Time: No <MAYLIN SOSA - Last Filed: 08/04/21 07:08> <GISELA HOANG - Last Filed: 08/04/21 07:28> - Departure Clinical Impression: Dementia, Breast pain, left, Left arm pain Condition: Stable Referrals: DOCTOR,NO FAMILY [Primary Care Provider] - Follow up/PCP as directed Additional Instructions: Call your primary care physician today to make arrangements for follow-up appointment for further evaluation and management. Prescriptions: Hydrocodone/APAP 5/325 [[place] 5/325 mg] 1 each PO Q8H PRN PRN #6 tablet MDD 3 PRN Reason: Pain
[2021-08-04 04:46] LABS: Basophil (Absolute #) 0.03 (0-0.4); Eosinophil % 3.9 % (0.00-5.0); Eosinophil (Absolute #) 0.14 (0-0.5); Hematocrit 35.5 % (35-47); Hemoglobin 11.1 gm/dl (12.0-16.0); Lymphocyte (Absolute #) 0.84 (1.0-4.6); Lymphocytes % 23.5 % (24.0-44.0); Mean Cell Volume 98.1 fl (78-100); Mean Corpuscular Hemoglobin 30.7 pg (26-32); Mean Corpuscular Hgb Concent. 31.3 g/dl (32-36); Mean Platelet Volume 9.7 fl (7.5-11.0); Monocyte (Absolute #) 0.36 (0.0-1.3); Monocytes % 10.1 % (0.0-12.0); Neutrophil % 61.7 % (36.0-66.0); Platelet Count 127 K/mm3 (150-450); Red Blood Count 3.62 M/mm3 (4.1-5.4); Red Cell Distribution Width 14.5 % (11.5-14.0); White Blood Count 3.6 K/mm3 (4.0-10.5)
[2021-08-04 05:00] LABS: ALBUMIN 3.3 g/dL (3.5-5.0); ALKALINE PHOSPHATASE 80 U/L (38-126); BLOOD UREA NITROGEN 18 mg/dL (7-17); CHLORIDE 107 mmol/L (98-107); Calcium 8.9 mg/dL (8.4-10.2); Carbon Dioxide 29 mmol/L (22-30); Creatinine 1 0.89 mg/dL (0.52-1.04); EST GLOMERULAR FILTRATION RATE > 60.0 ML/MIN; Glucose 96 mg/dL (74-106); Potassium 4.5 mmol/L (3.5-5.1); SGOT/AST 18 U/L (14-36); SGPT/ALT 8 U/L (0-35); SODIUM 141 mmol/L (137-145); Total Protein 5.7 g/dL (6.3-8.2)
[2021-08-04 05:07] LABS: Bacteria RARE /HPF (NEGATIVE); Mucus SLIGHT /HPF (NEGATIVE); RBC 0-2 /HPF (0-2); WBC 0-2 /HPF (0-5)
[2021-08-04 05:08] LABS: Appearance CLEAR (CLEAR); Bilirubin NEGATIVE (NEGATIVE); Glucose NEGATIVE (NEGATIVE); Ketones NEGATIVE (NEGATIVE); Nitrite NEGATIVE (NEGATIVE); Protein,Urine Dip NEGATIVE (Negative); RBC NEGATIVE Ery/ul (0-5); Specific Gravity 1.025 (1.005-1.025); Urobilinogen 0.2 mg/dL (0-1)
[2021-08-04 05:17] LABS: Dipstick done @ ? MAIN LAB
[2021-08-04 06:06] VITALS: O2SAT 98
[2021-08-04 07:04] VITALS: BP 189/105; PULSE 77
--- NOTE | 2021-08-04 09:13 | XRAY ---
Indication: Left chest pain. No known injury. Multiple contiguous axial images obtained through the chest without contrast. Comparison: None Lungs demonstrates mild bilateral dependent atelectasis and minimal bibasilar subsegmental atelectasis/scarring. No suspicious pulmonary mass, infiltrate, consolidation, or effusion. Heart borderline enlarged. Aorta minimally arteriosclerotic without aneurysm. No pathologic mediastinal lymphadenopathy. Large hiatal hernia with partial intrathoracic stomach. Bony thorax intact with mild osteopenia, minimal/mild degenerative changes throughout the spine, T8 vertebral hemangioma, right mastectomy, and left breast implant. Limited upper abdomen demonstrates 14.2 cm splenomegaly and cholecystectomy clips. Impression: 1. Bilateral atelectasis/scarring as detailed. No acute cardiopulmonary abnormalities. 2. Large hiatal hernia with partial intrathoracic stomach. 3. Incidental splenomegaly and chronic bony findings. Comment: Preliminary interpretation made by [facility]. No critical discrepancy.
--- NOTE | 2021-08-04 09:15 | XRAY ---
Indication: Pain. No known injury. Comparison: None 2 view left forearm demonstrates osteopenia, tiny olecranon spur, mild radiocarpal joint space narrowing, and mild 1st metacarpal multangular degenerative changes. No other bony, articular, or soft tissue abnormalities.
--- NOTE | 2021-08-04 09:15 | XRAY ---
Indication: Pain. No known injury. Comparison: None 2 view left humerus demonstrates osteopenia, mild/moderate shoulder degenerative arthropathy, hiatal hernia with partial intrathoracic stomach, and left breast implant. No other bony, articular, or soft tissue abnormalities.
== END 2021-08-04 07:31 | disposition home or self-care (01) ==
LOC: ED 03:28
DX: G30.9 Alzheimer's disease, unspecified (principal); F02.80 Dementia in other diseases classified elsewhere, unspecified severity, without behavioral disturbance, psychotic disturbance, mood disturbance, and anxiety; N64.4 Mastodynia; M79.602 Pain in left arm; R53.1 Weakness; Z79.891 Long term (current) use of opiate analgesic
CPT/HCPCS: 36000; 36415; 71250; 73060; 73090; 80053; 81001; 84484; 85025; 86140; 87086; 93005; 99284

== ENCOUNTER 2022-03-21 20:09 | Emergency (ER) | payer MEDICARE, OTHER ==
[2022-03-21] MEDS ORDERED: Sodium Chloride 0.9% 1000 ML 1,000 ML IV STA (20:51)
[2022-03-21] MEDS ORDERED: Sodium Chloride 0.9% 1000 ML 1,000 ML ONE (21:05)
[2022-03-21 21:40] LABS: Absolute Neutrophil Ct (ANC) 1.65 x10^3/uL (1.4-6.9); Basophil (Absolute #) 0.02 x10^3/uL (0-0.4); Eosinophil % 6.3 % (0.00-5.0); Eosinophil (Absolute #) 0.19 x10^3/uL (0-0.5); Hematocrit 33.3 % (35-47); Hemoglobin 10.6 g/dL (12.0-16.0); Lymphocyte (Absolute #) 0.84 x10^3/uL (1.0-4.6); Lymphocytes % 27.9 % (24.0-44.0); Mean Cell Volume 98.2 fL (78-100); Mean Corpuscular Hemoglobin 31.3 pg (26-32); Mean Corpuscular Hgb Concent. 31.8 g/dL (32-36); Mean Platelet Volume 10.2 fL (7.5-11.0); Neutrophil % 54.8 % (36.0-66.0); Platelet Count 129 x10^3/uL (150-450); Red Blood Count 3.39 x10^6/uL (4.1-5.4); Red Cell Distribution Width 13.7 % (11.5-14.0)
[2022-03-21 22:04] VITALS: O2SAT 99
[2022-03-21 22:23] LABS: ALBUMIN 3.7 g/dL (3.5-5.0); ANION GAP 8.4 MEQ/L (5-15); BILIRUBIN,TOTAL 0.6 mg/dL (0.2-1.3); Calcium 8.7 mg/dL (8.4-10.2); Creatinine 1 1.55 mg/dL (0.52-1.04); EST GLOMERULAR FILTRATION RATE 34.6 ML/MIN; Potassium 3.7 mmol/L (3.5-5.1); Total Protein 6.5 g/dL (6.3-8.2)
[2022-03-21 22:48] LABS: INFLUENZA A NEGATIVE (NEGATIVE); INFLUENZA B NEGATIVE (NEGATIVE); RESPIRATORY SYNCTIAL VIRUS NEGATIVE (Negative)
[2022-03-21 22:54] LABS: SARS-CoV-2 Xpert Express POSITIVE (NEGATIVE)
[2022-03-21 23:11] LABS: Bacteria PACKED /HPF (NEGATIVE); Mucus SLIGHT /HPF (NEGATIVE); WBC 26-50 /HPF (0-5)
[2022-03-21 23:13] LABS: Appearance SLIGHTLY CLOUDY (CLEAR); Bilirubin NEGATIVE (NEGATIVE); Dipstick done @ ? MAIN LAB; Glucose NEGATIVE (NEGATIVE); Ketones TRACE (NEGATIVE); Nitrite POSITIVE (NEGATIVE); Ph 5.5 (5-6); Protein,Urine Dip 30 (Negative); RBC NEGATIVE Ery/ul (0-5); Specific Gravity 1.025 (1.005-1.025); Urobilinogen 0.2 mg/dL (0-1)
[2022-03-21 23:14] VITALS: BP 143/67; PULSE 48
[2022-03-21 23:14] LABS: Urine Cultured Indicated? YES
--- NOTE | 2022-03-21 23:29 | ERPHSYRPT ---
- History of Present Illness Time Seen by Provider: 03/21/22 20:30 Historian: family Exam Limitations: clinical condition (Dementia) Patient Subjective Stated Complaint: pt siser states pt has been having low abd pain lasting for 6 days. sister is concerned about uti Triage Nursing Assessment: pt is alert but confued at baseline. pt has known dem entia. pt does point to area of abd pain. unable to urinate at this time. bowel sounds active in all 4 quadrants Physician History: Patient is a 77-year-old white female with a history of dementia who presents with her sister who says that she has had lower abdominal pain for approximately a week. This seems to be a recurrent problem and has been due to urinary tract infections in the past. She is also had a 3-day history of cough and cold. There has been no nausea vomiting or diarrhea she has had no fever chills or sweats. She received her Moderna booster approximately 2 weeks ago for COVID. Timing/Duration: week(s) (1) Activities at Onset: none Quality: aching Abdominal Pain Onset Location: suprapubic Pain Radiation: no radiation Severity of Pain-Max: mild Severity of Pain-Current: mild Modifying Factors: Improves With: urinating Allergies/Adverse Reactions: Iodinated Contrast Media Allergy (Verified 08/04/21 03:32) Sulfa (Sulfonamide Antibiotics) [Sulfa(Sulfonamide Antibiotics)] Allergy (Verified 08/04/21 03:32) Home Medications: Memantine HCl 10 mg PO DAILY 08/04/21 [History] Hx Tetanus, Diphtheria Vaccination/Date Given: No Hx Influenza Vaccination/Date Given: Yes Hx Pneumococcal Vaccination/Date Given: No Travel Risk - International Travel Have you traveled outside of the country in past 3 weeks: No - Coronavirus Screening Are you exhibiting any of the following symptoms?: No Close contact with a COVID-19 positive Pt in past 14-21 Days: No - Vaccine Status Have you recieved a Covid-19 vaccination: No Bottle Tester: Moderna - Vaccination Dates Date of 2cond Vaccination (if applicable): unknown - Review of Systems Constitutional: No Fever, No Chills Eyes: No Symptoms Ears, Nose, & Throat: No Symptoms Respiratory: No Cough, No Dyspnea Cardiac: No Chest Pain, No Edema, No Syncope Abdominal/Gastrointestinal: Abdominal Pain, No Nausea, No Vomiting, No Diarrhea Genitourinary Symptoms: No Dysuria Musculoskeletal: No Back Pain, No Neck Pain Skin: No Rash Neurological: No Dizziness, No Focal Weakness, No Sensory Changes Psychological: No Symptoms Endocrine: No Symptoms All Other Systems: Unable due to dementia - Past Medical History Pertinent Past Medical History: Yes Neurological History: Alzheimer's Disease, Dementia ENT History: No Pertinent History Cardiac History: No Pertinent History Respiratory History: No Pertinent History Endocrine Medical History: No Pertinent History Musculoskeletal History: No Pertinent History GI Medical History: Hernia History: No Pertinent History Psycho-Social History: No Pertinent History Female Reproductive Disorders: Breast Cancer Other Medical History: BREAST CANCER OVER 10 YEARS AGO; basal cell skin cancer on face - Past Surgical History Past Surgical History: Yes Neuro Surgical History: No Pertinent History Cardiac: No Pertinent History Respiratory: No Pertinent History Gastrointestinal: Cholecystectomy, Hernia Repair Genitourinary: No Pertinent History Musculoskeletal: Orthopedic Surgery Female Surgical History: Lumpectomy, Mastectomy Other Surgical History: KNEE SURGERY - Social History Smoking Status: Never smoker Exposure to second hand smoke: No Drug Use: none Patient Lives Alone: No - Nursing Vital Signs Nursing Vital Signs: Initial Vital Signs Temperature 97.0 F 03/21/22 20:23 Pulse Rate 83 03/21/22 20:23 Respiratory Rate 18 03/21/22 20:23 Blood Pressure 101/77 03/21/22 20:23 Pain Scale Pain Intensity 2 - Physical Exam General Appearance: mild distress, alert Eye Exam: PERRL/EOMI, eyes nml inspection Ears, Nose, Throat Exam: normal ENT inspection, pharynx normal, moist mucous membranes, other (Left parotid gland is swollen and very firm) Neck Exam: normal inspection, non-tender, supple, full range of motion Respiratory Exam: normal breath sounds, lungs clear, No respiratory distress Cardiovascular Exam: regular rate/rhythm, normal heart sounds Gastrointestinal/Abdomen Exam: soft, normal bowel sounds, tenderness, No mass Pelvic Exam: not done Rectal Exam: deferred Back Exam: normal inspection, normal range of motion, No CVA tenderness, No vertebral tenderness Extremity Exam: normal inspection, normal range of motion, pelvis stable Neurologic Exam: alert, cooperative, normal mood/affect, nml cerebellar function, sensation nml, No oriented x 3 (Patient is alert but confused), No motor deficits Skin Exam: normal color, warm, dry SpO2 Interpretation: normal SpO2: 99 O2 Delivery: Room Air - Course Nursing assessment & vital signs reviewed: Yes - CT Exams Abdomen/Pelvis CT Interpretation: Tele-radiologist Report Ordered Tests: Active Orders 24 hr Category Date Time Status EKG-ER Only STAT Care 03/21/22 20:51 Active IV Insertion STAT Care 03/21/22 20:51 Active ABDOMEN AND PELVIS W/0 CONTRAS [CT] Stat Exams 03/21/22 20:52 Taken CHEST 1 VIEW (PORTABLE) Stat Exams 03/21/22 20:52 Taken AMYLASE Stat Lab 03/21/22 21:35 Completed CBC W DIFF Stat Lab 03/21/22 21:35 Completed CMP Stat Lab 03/21/22 21:35 Completed CULTURE,URINE Stat Lab 03/21/22 22:59 Received LIPASE Stat Lab 03/21/22 21:35 Completed Lactic Acid Stat Lab 03/21/22 21:21 Completed TROPONIN Q4H Lab 03/21/22 21:35 Completed TROPONIN Q4H Lab 03/22/22 01:00 Ordered TROPONIN Q4H Lab 03/22/22 05:00 Ordered UA W/RFX CULTURE Stat Lab 03/21/22 22:59 Completed Medication Summary Discontinued Medications Generic Name Dose Route Start Last Admin Trade Name Freq PRN Reason Stop Dose Admin Sodium Chloride 1,000 mls @ 999 mls/hr 03/21/22 20:51 03/21/22 21:06 Sodium Chloride 0.9% 1000 Ml IV 03/21/22 21:51 999 mls/hr .Q1H1M STA Administration Sodium Chloride Confirm 03/21/22 21:05 Sodium Chloride 0.9% 1000 Ml Administered 03/21/22 21:06 Dose 1,000 mls @ ud .ROUTE .[facility] Lab/Rad Data: Laboratory Result Diagrams 03/21/22 21:35 03/21/22 21:35 Laboratory Results 03/21/22 03/21/22 03/21/22 Range/Units 22:59 22:07 21:35 WBC (4.0-10.5) x10^3/uL RBC (4.1-5.4) x10^6/uL Hgb (12.0-16.0) g/dL Hct (35-47) % MCV (78-100) fL MCH (26-32) pg MCHC (32-36) g/dL RDW (11.5-14.0) % Plt Count (150-450) x10^3/uL MPV (7.5-11.0) fL Gran % (36.0-66.0) % Immature Gran % (Auto) (0.00-0.4) % Nucleat RBC Rel Count (0.00-0.1) % Eos # (Auto) (0-0.5) x10^3/uL Immature Gran # (Auto) (0.00-0.03) x10^3u/L Absolute Lymphs (auto) (1.0-4.6) x10^3/uL Absolute Monos (auto) (0.0-1.3) x10^3/uL Absolute Nucleated RBC (0.00-0.01) x10^3u/L Lymphocytes % (24.0-44.0) % Monocytes % (0.0-12.0) % Eosinophils % (0.00-5.0) % Basophils % (0.0-0.4) % Absolute Granulocytes (1.4-6.9) x10^3/uL Basophils # (0-0.4) x10^3/uL Sodium (137-145) mmol/L Potassium (3.5-5.1) mmol/L Chloride (98-107) mmol/L Carbon Dioxide (22-30) mmol/L Anion Gap (5-15) MEQ/L BUN (7-17) mg/dL Creatinine (0.52-1.04) mg/dL Estimated GFR ML/MIN Glucose (74-106) mg/dL Lactic Acid (0.4-2.0) Calcium (8.4-10.2) mg/dL Total Bilirubin (0.2-1.3) mg/dL AST (14-36) U/L ALT (0-35) U/L Alkaline Phosphatase (38-126) U/L Troponin I < 0.012 (0.000-0.034) ng/mL Serum Total Protein (6.3-8.2) g/dL Albumin (3.5-5.0) g/dL Amylase (30-110) U/L Lipase (23-300) U/L Urinalys Dipstick Clnc MAIN LAB Urine Color YELLOW (YELLOW) Urine Appearance SLIGHTLY CLOUDY A (CLEAR) Urine pH 5.5 (5-6) Ur Specific [place] 1.025 (1.005-1.025) POC Urine Protein Conf 30 A (Negative) Urine Ketones TRACE A (NEGATIVE) Urine Nitrite POSITIVE A (NEGATIVE) Urine Bilirubin NEGATIVE (NEGATIVE) Urine Urobilinogen 0.2 (0-1) mg/dL Urine Leukocytes SMALL A (NEGATIVE) Urine WBC (Auto) 26-50 A (0-5) /HPF Urine RBC (Auto) 6-10 A (0-2) /HPF U Epithel Cells (Auto) NONE (FEW) /HPF Urine Bacteria (Auto) PACKED A (NEGATIVE) /HPF Urine RBC NEGATIVE (0-5) Jourdan/ul Urine Mucus (Auto) SLIGHT A (NEGATIVE) /HPF Ur Culture Indicated? YES Urine Glucose NEGATIVE (NEGATIVE) mg/dL Influenza Type A Ag NEGATIVE (NEGATIVE) Influenza Type B Ag NEGATIVE (NEGATIVE) RSV (PCR) NEGATIVE (Negative) SARS-CoV-2 (PCR) POSITIVE A (NEGATIVE) 03/21/22 03/21/22 03/21/22 Range/Units 21:35 21:35 21:21 WBC 3.0 L (4.0-10.5) x10^3/uL RBC 3.39 L (4.1-5.4) x10^6/uL Hgb 10.6 L (12.0-16.0) g/dL Hct 33.3 L (35-47) % MCV 98.2 (78-100) fL MCH 31.3 (26-32) pg MCHC 31.8 L (32-36) g/dL RDW 13.7 (11.5-14.0) % Plt Count 129 L (150-450) x10^3/uL MPV 10.2 (7.5-11.0) fL Gran % 54.8 (36.0-66.0) % Immature Gran % (Auto) 0.3 (0.00-0.4) % Nucleat RBC Rel Count 0.0 (0.00-0.1) % Eos # (Auto) 0.19 (0-0.5) x10^3/uL Immature Gran # (Auto) 0.01 (0.00-0.03) x10^3u/L Absolute Lymphs (auto) 0.84 L (1.0-4.6) x10^3/uL Absolute Monos (auto) 0.30 (0.0-1.3) x10^3/uL Absolute Nucleated RBC 0.00 (0.00-0.01) x10^3u/L Lymphocytes % 27.9 (24.0-44.0) % Monocytes % 10.0 (0.0-12.0) % Eosinophils % 6.3 H (0.00-5.0) % Basophils % 0.7 (0.0-0.4) % Absolute Granulocytes 1.65 (1.4-6.9) x10^3/uL Basophils # 0.02 (0-0.4) x10^3/uL Sodium 137 (137-145) mmol/L Potassium 3.7 (3.5-5.1) mmol/L Chloride 102 (98-107) mmol/L Carbon Dioxide 31 H (22-30) mmol/L Anion Gap 8.4 (5-15) MEQ/L BUN 22 H (7-17) mg/dL Creatinine 1.55 H (0.52-1.04) mg/dL Estimated GFR 34.6 ML/MIN Glucose 92 (74-106) mg/dL Lactic Acid 1.1 (0.4-2.0) Calcium 8.7 (8.4-10.2) mg/dL Total Bilirubin 0.60 (0.2-1.3) mg/dL AST 19 (14-36) U/L ALT 10 (0-35) U/L Alkaline Phosphatase 77 (38-126) U/L Troponin I (0.000-0.034) ng/mL Serum Total Protein 6.5 (6.3-8.2) g/dL Albumin 3.7 (3.5-5.0) g/dL Amylase 64 (30-110) U/L Lipase 95 (23-300) U/L Urinalys Dipstick Clnc Urine Color (YELLOW) Urine Appearance (CLEAR) Urine pH (5-6) Ur Specific [place] (1.005-1.025) POC Urine Protein Conf (Negative) Urine Ketones (NEGATIVE) Urine Nitrite (NEGATIVE) Urine Bilirubin (NEGATIVE) Urine Urobilinogen (0-1) mg/dL Urine Leukocytes (NEGATIVE) Urine WBC (Auto) (0-5) /HPF Urine RBC (Auto) (0-2) /HPF U Epithel Cells (Auto) (FEW) /HPF Urine Bacteria (Auto) (NEGATIVE) /HPF Urine RBC (0-5) Jourdan/ul Urine Mucus (Auto) (NEGATIVE) /HPF Ur Culture Indicated? Urine Glucose (NEGATIVE) mg/dL Influenza Type A Ag (NEGATIVE) Influenza Type B Ag (NEGATIVE) RSV (PCR) (Negative) SARS-CoV-2 (PCR) (NEGATIVE) - Progress Progress: unchanged Progress Note: 03/21/22 23:29 Discussed discussed with the sister and the need to follow-up the parotid care and if it did not resolve on antibiotics with ENT.She was also informed of the urinary tract infection and the positive COVID test she will watch any respiratory symptoms. - Departure Departure Disposition: Home Clinical Impression: COVID, Acute UTI, Dementia, Swelling of left parotid gland Condition: Stable Critical Care Time: No Referrals: LOUISA ANTHONY PA [Primary Care Provider] - Follow up/PCP as directed Prescriptions: Cephalexin Mh 500 mg [Keflex 500 mg] 500 mg PO QID #40 cap Nirmatrelvir/Ritonavir [Paxlovid 2X150 mg-100 mg (Eua)] 1 each PO BID 5 Days #10 tablet
[2022-03-21] MEDS ORDERED: Rocephin 1000 MG INJ IM ONE (23:30)
[2022-03-21] MEDS ORDERED: Rocephin 1000 MG INJ ONE (23:33)
--- NOTE | 2022-03-22 08:48 | XRAY ---
Indication: Abdomen pain. Multiple contiguous images obtained through the abdomen and pelvis without contrast. Comparison: December 07, 2020 Lung bases again hyperinflated. Scattered bibasilar subsegmental atelectasis/scarring. Heart not enlarged. Stable large paraesophageal hiatal hernia with partial intrathoracic stomach in left lung base. Again incidental partially visualized left breast implant. Noncontrasted stomach and bowel loops nonobstructed with normal appendix and scattered colonic diverticulosis. Spleen remains enlarged measuring 12.4 cm. Again incidental tiny calcified uterine fibroids and cholecystectomy clips. No free fluid/air. Remaining liver, pancreas, spleen, adrenal glands, kidneys, ureters, bladder, and uterus are unremarkable for noncontrast exam. Again minimal scattered aortoiliac calcifications without AAA. Osseous structures intact again with mild osteopenia, mild/moderate multilevel degenerative spondylosis, and minimal grade 1 L4 anterolisthesis. Impression: 1. Stable paraesophageal hiatal hernia with partial intrathoracic stomach, colonic diverticulosis, splenomegaly, calcified uterine fibroids, arteriosclerotic disease, and chronic bony findings. 2. Remaining CT abdomen/pelvis without contrast exam is negative. Comment: Preliminary interpretation made by C. No critical discrepancy.
--- NOTE | 2022-03-22 08:50 | XRAY ---
Indication: Pain. Comparison: July 06, 2008 Portable chest unchanged again demonstrating hiatal hernia with left base partial intrathoracic stomach and subsegmental atelectasis. Remaining heart and lungs unremarkable. Bony thorax intact again with osteopenia, degenerative changes, and left breast implant. Impression: Continued nonacute chest with chronic features.
== END 2022-03-21 23:50 | disposition home or self-care (01) ==
LOC: ED 20:09
DX: U07.1 COVID-19 (principal); N39.0 Urinary tract infection, site not specified; F03.90 Unspecified dementia, unspecified severity, without behavioral disturbance, psychotic disturbance, mood disturbance, and anxiety; K11.1 Hypertrophy of salivary gland; R10.30 Lower abdominal pain, unspecified; R05.1 Acute cough; Z79.899 Other long term (current) drug therapy
CPT/HCPCS: 0241U; 36415; 71045; 74176; 80053; 81015; 82150; 83605; 83690; 84484; 85025; 87086; 93005; 96372; 96374; 99284; J0696

== ENCOUNTER 2022-11-01 22:36 | Emergency (ER) | payer MEDICARE, OTHER ==
[2022-11-01] MEDS ORDERED: Zofran 4 MG/2 ML VIAL IV ONE (22:53)
[2022-11-01] MEDS ORDERED: Sodium Chloride 0.9% 1000 ML 1,000 ML IV STA (22:53)
--- NOTE | 2022-11-01 23:13 | ERPHSYRPT ---
- History of Present Illness Time Seen by Provider: 11/01/22 22:37 Source: patient Exam Limitations: no limitations Patient Subjective Stated Complaint: Pt has dementia, unable to answer questions appropriately. Pts sister who is her housekeeper caregiver reports yesterday she started going to the bathroom a lot and would just sit on the toilet, thinks she was maybe having diarrhea but has hx of IBS. Pts sister called pts PCPs after hours line and it was recommended she bring pt to the ED. Triage Nursing Assessment: Pt alert and confused, pt has dementia, unable to answer questions appropriately, picking at bed sheets. No respiratory distress. Skin w/p/d. Transfered to ED cot by EMS staff. Resting comfortably on cot. Does not appear to be in pain. Active bowel sounds in all four quads. Abdomen soft/did not appear to be tender with palpitation. Physician History: Patient has dementia, unable to give full history. Per the sister, patient has had increased bowel movements over the last 3 to 4 hours. She is afraid that she is dehydrated. Patient does have a history of IBS. She states that sometimes patient forgets to take her dementia meds. Patient does live full- time with her sister. No falls or other known traumas. No fever no chills. No other systemic signs of illness. Allergies/Adverse Reactions: Iodinated Contrast Media Allergy (Verified 11/01/22 22:56) Sulfa (Sulfonamide Antibiotics) [Sulfa(Sulfonamide Antibiotics)] Allergy (Verified 11/01/22 22:56) Home Medications: Memantine HCl 10 mg PO DAILY 08/04/21 [History] Hx Tetanus, Diphtheria Vaccination/Date Given: No Hx Influenza Vaccination/Date Given: No Hx Pneumococcal Vaccination/Date Given: Yes Travel Risk - International Travel Have you traveled outside of the country in past 3 weeks: No - Coronavirus Screening Are you exhibiting any of the following symptoms?: Yes Symptoms: Vomiting/Diarrhea Close contact with a COVID-19 positive Pt in past 14-21 Days: No - Vaccine Status Have you recieved a Covid-19 vaccination: Yes [employer] Examiner: Moderna - Vaccination Dates Date of 2cond Vaccination (if applicable): ? - Review of Systems Constitutional: No Fever, No Chills Eyes: No Symptoms Ears, Nose, & Throat: No Symptoms Respiratory: No Cough, No Dyspnea Cardiac: No Chest Pain, No Edema, No Syncope Abdominal/Gastrointestinal: No Abdominal Pain, No Nausea, No Vomiting, No Diarrhea Genitourinary Symptoms: No Dysuria Musculoskeletal: No Back Pain, No Neck Pain Skin: No Rash Neurological: No Dizziness, No Focal Weakness, No Sensory Changes Psychological: No Symptoms Endocrine: No Symptoms All Other Systems: Reviewed and Negative - Past Medical History Pertinent Past Medical History: Yes Neurological History: Alzheimer's Disease, Dementia ENT History: No Pertinent History Cardiac History: No Pertinent History Respiratory History: No Pertinent History Endocrine Medical History: No Pertinent History Musculoskeletal History: No Pertinent History GI Medical History: Hernia History: No Pertinent History Psycho-Social History: No Pertinent History Female Reproductive Disorders: Breast Cancer Other Medical History: BREAST CANCER OVER 10 YEARS AGO; basal cell skin cancer on face, low vitamin b12 - Past Surgical History Past Surgical History: Yes Neuro Surgical History: No Pertinent History Cardiac: No Pertinent History Respiratory: No Pertinent History Gastrointestinal: Cholecystectomy, Hernia Repair Genitourinary: No Pertinent History Musculoskeletal: Orthopedic Surgery Female Surgical History: Lumpectomy, Mastectomy Other Surgical History: KNEE SURGERY, biopsy to lymp node on left side of face - Social History Smoking Status: Never smoker Exposure to second hand smoke: No Drug Use: none Patient Lives Alone: Yes - Nursing Vital Signs Nursing Vital Signs: Initial Vital Signs Temperature 97.9 F 11/01/22 22:37 Pulse Rate 73 11/01/22 22:37 Respiratory Rate 16 11/01/22 22:37 Blood Pressure 133/81 11/01/22 22:37 O2 Sat by Pulse Oximetry 97 11/01/22 22:37 - Physical Exam General Appearance: no apparent distress, alert Eye Exam: PERRL/EOMI, eyes nml inspection Ears, Nose, Throat Exam: normal ENT inspection, TMs normal, pharynx normal, moist mucous membranes Neck Exam: normal inspection, non-tender, supple, full range of motion Respiratory Exam: normal breath sounds, lungs clear, No respiratory distress Cardiovascular Exam: regular rate/rhythm, normal heart sounds, normal peripheral pulses Gastrointestinal/Abdomen Exam: soft, normal bowel sounds, No tenderness, No mass Back Exam: normal inspection, normal range of motion, No CVA tenderness, No vertebral tenderness Extremity Exam: normal inspection, normal range of motion, pelvis stable Neurologic Exam: alert, oriented x 3, cooperative, normal mood/affect, nml cerebellar function, nml station & gait, sensation nml, No motor deficits Skin Exam: normal color, warm, dry, No rash Lymphatic Exam: No adenopathy SpO2: 97 - Course Nursing assessment & vital signs reviewed: Yes Ordered Tests: Active Orders 24 hr Category Date Time Status EKG-ER Only STAT Care 11/01/22 22:53 Active IV Insertion STAT Care 11/01/22 22:53 Active ABDOMEN AND PELVIS W/0 CONTRAS [CT] Stat Exams 11/01/22 22:54 Completed CBC W DIFF Stat Lab 11/01/22 23:20 Completed CMP Stat Lab 11/01/22 23:20 Completed LIPASE Stat Lab 11/01/22 23:20 Completed TROPONIN Q4H Lab 11/01/22 23:20 Completed TROPONIN Q4H Lab 11/02/22 03:00 Ordered TROPONIN Q4H Lab 11/02/22 07:00 Ordered UA W/RFX UR CULTURE Stat Lab 11/02/22 00:46 Completed Medication Summary Discontinued Medications Generic Name Dose Route Start Last Admin Trade Name Freq PRN Reason Stop Dose Admin Sodium Chloride 1,000 mls @ 999 mls/hr 11/01/22 22:53 11/02/22 00:19 Sodium Chloride 0.9% 1000 Ml IV 11/01/22 23:53 999 mls/hr .Q1H1M STA Administration Sodium Chloride Confirm 11/02/22 00:18 Sodium Chloride 0.9% 1000 Ml Administered 11/02/22 00:19 Dose 1,000 mls @ ud .ROUTE .STK-MED ONE Ondansetron HCl 4 mg 11/01/22 22:53 11/02/22 00:20 Ondansetron Hcl 4 Mg/2 Ml Vial IV 11/01/22 22:54 4 mg STAT ONE Administration Ondansetron HCl Confirm 11/02/22 00:18 Ondansetron Hcl 4 Mg/2 Ml Vial Administered 11/02/22 00:19 Dose 4 mg .ROUTE .STK-MED ONE Lab/Rad Data: Laboratory Result Diagrams 11/01/22 23:20 11/01/22 23:20 Laboratory Results 11/02/22 11/01/22 11/01/22 Range/Units 00:46 Unknown 23:20 WBC (4.0-10.5) x10^3/uL RBC (4.1-5.4) x10^6/uL Hgb (12.0-16.0) g/dL Hct (35-47) % MCV (78-100) fL MCH (26-32) pg MCHC (32-36) g/dL RDW (11.5-14.0) % Plt Count (150-450) x10^3/uL MPV (7.5-11.0) fL Gran % (36.0-66.0) % Immature Gran % (Auto) (0.00-0.4) % Nucleat RBC Rel Count (0.00-0.1) % Eos # (Auto) (0-0.5) x10^3/uL Immature Gran # (Auto) (0.00-0.03) x10^3u/L Absolute Lymphs (auto) (1.0-4.6) x10^3/uL Absolute Monos (auto) (0.0-1.3) x10^3/uL Absolute Nucleated RBC (0.00-0.01) x10^3u/L Lymphocytes % (24.0-44.0) % Monocytes % (0.0-12.0) % Eosinophils % (0.00-5.0) % Basophils % (0.0-0.4) % Absolute Granulocytes (1.4-6.9) x10^3/uL Basophils # (0-0.4) x10^3/uL Sodium (137-145) mmol/L Potassium (3.5-5.1) mmol/L Chloride (98-107) mmol/L Carbon Dioxide (22-30) mmol/L Anion Gap (5-15) MEQ/L BUN (7-17) mg/dL Creatinine (0.52-1.04) mg/dL Estimated GFR ML/MIN Glucose (74-106) mg/dL Calcium (8.4-10.2) mg/dL Total Bilirubin (0.2-1.3) mg/dL AST (14-36) U/L ALT (0-35) U/L Alkaline Phosphatase (38-126) U/L Troponin I < 0.012 (0.000-0.034) ng/mL Serum Total Protein (6.3-8.2) g/dL Albumin (3.5-5.0) g/dL Lipase (23-300) U/L Urine Color Yellow (Yellow) Urine Appearance Clear (Clear) Urine pH 5.0 (4.6-8.0) Ur Specific Phenix 1.025 (1.005-1.030) Urine Protein 30 (Negative) Urine Glucose (UA) Negative (Negative) mg/dL Urine Ketones 15 A (Negative) Urine Blood NHT (Negative) Urine Nitrite Negative (Negative) Urine Bilirubin Negative (Negative) Urine Urobilinogen 1.0 A (0.2) mg/dL Ur Leukocyte Esterase Negative (Negative) U Hyaline Cast (Auto) 3-5 A (0-2) /LPF Urine Microscopic RBC 0-2 (0-5) /HPF Urine Microscopic WBC 3-5 (0-5) /HPF Ur Epithelial Cells None Seen (None Seen) /HPF Urine Bacteria None Seen (None Seen) /HPF Urine Culture Reflexed NO (NO) Influenza Type A Ag NEGATIVE (NEGATIVE) Influenza Type B Ag NEGATIVE (NEGATIVE) RSV (PCR) NEGATIVE (NEGATIVE) SARS-CoV-2 (PCR) NEGATIVE (NEGATIVE) Slides for Path Review 11/01/22 11/01/22 Range/Units 23:20 23:20 WBC 5.2 (4.0-10.5) x10^3/uL RBC 3.56 L (4.1-5.4) x10^6/uL Hgb 10.6 L (12.0-16.0) g/dL Hct 33.2 L (35-47) % MCV 93.3 (78-100) fL MCH 29.8 (26-32) pg MCHC 31.9 L (32-36) g/dL RDW 13.7 (11.5-14.0) % Plt Count 102 L (150-450) x10^3/uL MPV 9.5 (7.5-11.0) fL Gran % 83.9 H (36.0-66.0) % Immature Gran % (Auto) 0.4 (0.00-0.4) % Nucleat RBC Rel Count 0.0 (0.00-0.1) % Eos # (Auto) 0.02 (0-0.5) x10^3/uL Immature Gran # (Auto) 0.02 (0.00-0.03) x10^3u/L Absolute Lymphs (auto) 0.44 L (1.0-4.6) x10^3/uL Absolute Monos (auto) 0.33 (0.0-1.3) x10^3/uL Absolute Nucleated RBC 0.00 (0.00-0.01) x10^3u/L Lymphocytes % 8.5 L (24.0-44.0) % Monocytes % 6.4 (0.0-12.0) % Eosinophils % 0.4 (0.00-5.0) % Basophils % 0.4 (0.0-0.4) % Absolute Granulocytes 4.35 (1.4-6.9) x10^3/uL Basophils # 0.02 (0-0.4) x10^3/uL Sodium 140 (137-145) mmol/L Potassium 4.6 (3.5-5.1) mmol/L Chloride 105 (98-107) mmol/L Carbon Dioxide 26 (22-30) mmol/L Anion Gap 13.4 (5-15) MEQ/L BUN 34 H (7-17) mg/dL Creatinine 1.51 H (0.52-1.04) mg/dL Estimated GFR 35.6 ML/MIN Glucose 138 H (74-106) mg/dL Calcium 8.8 (8.4-10.2) mg/dL Total Bilirubin 0.80 (0.2-1.3) mg/dL AST 18 (14-36) U/L ALT 10 (0-35) U/L Alkaline Phosphatase 91 (38-126) U/L Troponin I (0.000-0.034) ng/mL Serum Total Protein 6.1 L (6.3-8.2) g/dL Albumin 3.4 L (3.5-5.0) g/dL Lipase 49 (23-300) U/L Urine Color (Yellow) Urine Appearance (Clear) Urine pH (4.6-8.0) Ur Specific Phenix (1.005-1.030) Urine Protein (Negative) Urine Glucose (UA) (Negative) mg/dL Urine Ketones (Negative) Urine Blood (Negative) Urine Nitrite (Negative) Urine Bilirubin (Negative) Urine Urobilinogen (0.2) mg/dL Ur Leukocyte Esterase (Negative) U Hyaline Cast (Auto) (0-2) /LPF Urine Microscopic RBC (0-5) /HPF Urine Microscopic WBC (0-5) /HPF Ur Epithelial Cells (None Seen) /HPF Urine Bacteria (None Seen) /HPF Urine Culture Reflexed (NO) Influenza Type A Ag (NEGATIVE) Influenza Type B Ag (NEGATIVE) RSV (PCR) (NEGATIVE) SARS-CoV-2 (PCR) (NEGATIVE) Slides for Path Review YES - Progress Progress: improved Progress Note: 11/01/22 23:13 differential diagnosis includes kidney stone, compression fracture, infection, UTI, triple AAA - basic labs including: CBC, lipase, CMP, UA, trop - insert IV for fluids, pain meds, nausea control - consider imaging: CT ab/pelvis 11/02/22 01:17 Troponin came back normal on the patient. No other obvious lab changes. UA shows no signs of infection. CT of the abdomen pelvis demonstrates no obstruction, infection, obvious pneumonia. Plan for close follow-up with PCP for abdominal reexam in 24 hours. I did discuss this with the patient's sister. She return here for new or changing symptoms sooner. Counseled pt/family regarding: lab results, diagnosis, need for follow-up, rad results - Departure Departure Disposition: Home Clinical Impression: Abdominal discomfort Condition: Stable Critical Care Time: No Referrals: LOUISA ANTHONY PA [NON-STAFF PHY W/O PRIVILEGES] - Follow up/PCP as directed Instructions: Abdominal pain
[2022-11-01 23:27] LABS: Absolute Neutrophil Ct (ANC) 4.35 x10^3/uL (1.4-6.9); BASOPHIL % 0.4 % (0.0-0.4); Basophil (Absolute #) 0.02 x10^3/uL (0-0.4); Eosinophil % 0.4 % (0.00-5.0); Eosinophil (Absolute #) 0.02 x10^3/uL (0-0.5); Hematocrit 33.2 % (35-47); Hemoglobin 10.6 g/dL (12.0-16.0); IMMATURE GRAN # 0.02 x10^3u/L (0.00-0.03); IMMATURE GRAN % 0.4 % (0.00-0.4); Lymphocyte (Absolute #) 0.44 x10^3/uL (1.0-4.6); Lymphocytes % 8.5 % (24.0-44.0); Mean Cell Volume 93.3 fL (78-100); Mean Corpuscular Hemoglobin 29.8 pg (26-32); Mean Corpuscular Hgb Concent. 31.9 g/dL (32-36); Mean Platelet Volume 9.5 fL (7.5-11.0); Monocyte (Absolute #) 0.33 x10^3/uL (0.0-1.3); Monocytes % 6.4 % (0.0-12.0); Neutrophil % 83.9 % (36.0-66.0); Platelet Count 102 x10^3/uL (150-450); Red Blood Count 3.56 x10^6/uL (4.1-5.4); Red Cell Distribution Width 13.7 % (11.5-14.0); White Blood Count 5.2 x10^3/uL (4.0-10.5)
[2022-11-01 23:42] LABS: ALBUMIN 3.4 g/dL (3.5-5.0); ANION GAP 13.4 MEQ/L (5-15); BILIRUBIN,TOTAL 0.8 mg/dL (0.2-1.3); Calcium 8.8 mg/dL (8.4-10.2); Creatinine 1 1.51 mg/dL (0.52-1.04); EST GLOMERULAR FILTRATION RATE 35.6 ML/MIN; Potassium 4.6 mmol/L (3.5-5.1); Total Protein 6.1 g/dL (6.3-8.2)
[2022-11-02 00:07] LABS: INFLUENZA A NEGATIVE (NEGATIVE); INFLUENZA B NEGATIVE (NEGATIVE); RESPIRATORY SYNCTIAL VIRUS NEGATIVE (NEGATIVE); SARS-CoV-2 Xpert Express NEGATIVE (NEGATIVE)
[2022-11-02] MEDS ORDERED: Sodium Chloride 0.9% 1000 ML 1,000 ML ONE (00:18)
[2022-11-02] MEDS ORDERED: Zofran 4 MG/2 ML VIAL ONE (00:18)
--- NOTE | 2022-11-02 00:48 | XRAY ---
CLINICAL HISTORY:Abdominal pain; COMPARISON:CT dated 03/21/2022; TECHNIQUES:CT of the abdomen and pelvis was performed in the axial plane with sagittal and coronal reconstruction images without intravenous contrast; FINDINGS: The liver is normal in size, and morphology and appears unremarkable with no intrahepatic or extrahepatic bile duct dilation. Gall bladder is surgically absent. Surgical weston are noted in the gall bladder fossa. Unremarkable appearing pancreas. No pancreatic mass or ductal dilatation is seen. Mild splenomegaly noted with spleen measuring 13 cm at splenic hilum. No focal splenic defect is seen. The adrenal glands are normal. The kidneys appear unremarkable with no cysts, calculi, masses or hydronephrosis. The ureters are normal with no stones. Minimal to mild atherosclerotic changes along the abdominal aorta without specific evidence of aneurysm or dissection. Moderate sized hiatal hernia is seen. Small bowel and colon are non-distended with no abnormality. Fecal impaction in the distal colon. No free air and no ascites. No free intraperitoneal air is seen. Bladder is unremarkable with no stones. Senile atrophic uterus is noted with myometrial calcifications. No adnexal or pelvic mass is seen. Sections through the lower chest show mild bibasal atelectatic changes. Partly covered left breast implant is noted. Minimal pericardial effusion. Mild to moderate degenerative changes are seen in the visualized spine. IMPRESSION: Moderate sized hiatal hernia is again seen. No acute bowel-related abnormality. Rest of the findings are stable as the previous scan. Electronically Signed by: Shahida Monroe MD. (11/01/2022 23:43:21 FURNITURE BUILDER)
[2022-11-02 01:04] LABS: Slide Review 1 YES
[2022-11-02 01:10] LABS: ADD URINE CULTURE? NO (NO); Appearance Clear (Clear); Bacteria None Seen /HPF (None Seen); Bilirubin Negative (Negative); Blood NHT (Negative); Epithelial Cells None Seen /HPF (None Seen); Glucose, Urine Negative (Negative); Ketones 15 (Negative); Leukocyte Esterase Negative (Negative); Nitrite Negative (Negative); Protein,Urine Dip 30 (Negative); RBC 0-2 /HPF (0-5); Specific Gravity 1.025 (1.005-1.030)
[2022-11-02 01:16] VITALS: O2SAT 97
[2022-11-02 01:32] VITALS: BP 136/84; PULSE 65
== END 2022-11-02 01:33 | disposition home or self-care (01) ==
LOC: ED 22:36
DX: R10.9 Unspecified abdominal pain (principal); G30.9 Alzheimer's disease, unspecified; F02.80 Dementia in other diseases classified elsewhere, unspecified severity, without behavioral disturbance, psychotic disturbance, mood disturbance, and anxiety; Z79.899 Other long term (current) drug therapy; Z20.828 Contact with and (suspected) exposure to other viral communicable diseases
CPT/HCPCS: 0241U; 36000; 36415; 74176; 80053; 81001; 83690; 84484; 85025; 93005; 96374; 99284; P9612; J2405